=== PATIENT | male | born 1950 | race Caucasian/White ===

== ENCOUNTER → 2017-04-18 | Outpatient (CLI) | payer MEDICARE ==
[~2017-04-18] MED LIST: ASPI325T6 PO; COREG 6.256.25 MG/TA PO; FARXIGA5 PO; FERROUS SU325 MG/TAB PO; GLUCOPHAGE XR500 M1 PO; HCTZ12.5TAB PO; JANUMET; JANUMET 1000 MG1 TAB PO; LEVEMIR SQ; LIPITOR 10MG10 MG PO; LISINOPRIL20 MG PO; NOVOLOG FLEX100 U/ML SQ; PLAVIX 75MG TAB75 MG PO; PRINIVIL20 MG PO; VICTOZA6 MG/ML SQ
== END ==
LOC: COL.RAD 08:09
DX: N18.9 Chronic kidney disease, unspecified (principal)

== ENCOUNTER 2019-02-21 20:34 | Emergency (ER) | payer MEDICARE ==
[~2019-02-21] VITALS: Ht 175.3 cm; Wt 136.4 kg
[2019-02-21 20:42] VITALS: TEMP 97.6
[2019-02-21] MEDS ORDERED: FLOMAX 0.40.4 MG/CAP PO (20:47)
[2019-02-21] MEDS ORDERED: CANA300T PO (20:47)
[2019-02-21 21:55] VITALS: BP 118/97; PULSE 56
== END 2019-02-21 21:58 | disposition home or self-care (01) ==
LOC: COL.ER 20:34
DX: I83.892 Varicose veins of left lower extremity with other complications (principal); S80.812A Abrasion, left lower leg, initial encounter; I12.9 Hypertensive chronic kidney disease with stage 1 through stage 4 chronic kidney disease, or unspecified chronic kidney disease; E11.22 Type 2 diabetes mellitus with diabetic chronic kidney disease; N18.9 Chronic kidney disease, unspecified; E78.5 Hyperlipidemia, unspecified; Z79.82 Long term (current) use of aspirin; Z79.02 Long term (current) use of antithrombotics/antiplatelets; Z86.79 Personal history of other diseases of the circulatory system

== ENCOUNTER 2019-03-24 18:49 | Inpatient (IN) | payer MEDICARE ==
[~2019-03-24] VITALS: Ht 177.8 cm; Wt 133.7 kg
[~2019-03-24 18:49] MED LIST changes: +CANA300T PO; +FLOMAX 0.40.4 MG/CAP PO
[2019-03-24 19:38] LABS: BASO % 0.4 % (0.0-2.0); EOS # 0.2 (0.0-0.7); EOS % 2.7 % (0-4.0); GRAN # 4.1 (1.4-6.5); GRAN % 53.6 % (42.2-75.2); HEMATOCRIT 38.4 % (42.0-52.0); HEMOGLOBIN 12.2 g/dl (13.5-18.0); LYMPH # 2.5 (1.2-3.4); LYMPH % 32.8 % (20.0-51.0); MEAN CELL VOLUME 89 fl (80.0-100.0); MEAN CORPUSCULAR HEMOGLOBIN 28 pg (27.0-31.0); MEAN CORPUSCULAR HGB CONC 32 g/dl (33.0-37.0); MEAN PLATELET VOLUME 9.8 fl (7.4-10.4); MONO # 0.8 (0.1-0.6); MONO % 10.2 % (1.7-9.3); PLATELET COUNT 182 K/mm3 (130-400); REDCELL DISTRIBUTION WIDTH-CV 15.1 % (11.5-14.5)
[2019-03-24 19:40] LABS: INR 1.1 (0.8-3.0); PROTHROMBIN TIME 12.6 SECONDS (9.7-12.8)
[2019-03-24 19:43] LABS: PARTIAL THROMBOPLASTIN TIME 34.1 SECONDS (26.0-37.0)
[2019-03-24 19:55] LABS: ALBUMIN 4.1 gm/dL (3.5-5.0); BILIRUBIN,TOTAL 0.6 mg/dL (0.0-1.0); CALCIUM 9.6 mg/dL (8.4-10.2); CREATININE, serum 1.88 (0.66-1.25); POTASSIUM 4.3 mmol/L (3.4-5.0); TOTAL PROTEIN 7.3 gm/dL (6.4-8.2)
[2019-03-24 20:10] LABS: TROPONIN-I 0.038 ng/mL (0.000-0.035)
[2019-03-24 21:16] VITALS: BP 128/54; PULSE 44; TEMP 98.6
[2019-03-24] MEDS ORDERED: LOVAZA1 GM PO (21:30)
--- NOTE | 2019-03-24 22:00 | NUR ---
Patient arrived to medical floor room 318 at approximately 2100. accompanied. Denies having pain and discomfort. Alert and oriented x 4. Able to make needs known. LS CTA. Respirations even and unlabored. Does state he gets SOB with exertion. Heart rate has been in the 40s since being in the ER. Tele shows sinus bradycardia. Periphearl INT to right hand flushed. Site is without redness, warmth, swelling, and pain. 2+ edema to BLE. Red area to left dominguez. BUE and BLE are strong and equal bilaterally. Pupils are round, and react equally and immediately to light. Voices no needs or concerns at this time. Call light is within reach.
[2019-03-24 23:17] LABS: TROPONIN-I 3 HR POST INITIAL 0.04 ng/mL (0.000-0.034)
[2019-03-24 23:55] VITALS: BP 103/47; PULSE 83; TEMP 98.1
[2019-03-25] VITALS (11 sets, daily range): BP systolic 96–152; BP diastolic 47–61; PULSE 49–105; TEMP 97.5–98.5
--- NOTE | 2019-03-25 04:54 | NUR ---
Patient's HR has been in the 40s during the night, and dropping into the 30s at times. Notified Dr. Trejo, and order received to notify if less than 35. Troponins continue to be elevated, but did not increase. Denies having pain and discomfort. Denies any vision loss and headache. Neuro checks are WNL for patient: pupils round and react equally and immediately to light, strength to BUE and BLE are equal bilatereally, no facial drooping or difficulty swallowing. remains at bedside. Notified patient of pain for carotid ultrasound and MRI of the brain in the morning, and voiced understanding. Voices no other needs or concerns at this time. Resting in bed wtih eyes closed at this time. Call light is within reach.
[2019-03-25 06:54] LABS: HEMATOCRIT 38.6 % (42.0-52.0); HEMOGLOBIN 12.3 g/dl (13.5-18.0); MEAN CELL VOLUME 89 fl (80.0-100.0); MEAN CORPUSCULAR HEMOGLOBIN 28 pg (27.0-31.0); MEAN CORPUSCULAR HGB CONC 32 g/dl (33.0-37.0); MEAN PLATELET VOLUME 10.4 fl (7.4-10.4); PLATELET COUNT 162 K/mm3 (130-400); RED BLOOD COUNT 4.36 M/mm3 (4.20-5.60)
[2019-03-25 07:09] LABS: ALBUMIN 4.1 gm/dL (3.5-5.0); BILIRUBIN,TOTAL 0.8 mg/dL (0.0-1.0); CALCIUM 9.7 mg/dL (8.4-10.2); CREATININE, serum 1.84 (0.66-1.25); POTASSIUM 4.3 mmol/L (3.4-5.0); TOTAL PROTEIN 7.2 gm/dL (6.4-8.2)
[2019-03-25 07:21] LABS: TROPONIN-I 0.042 ng/mL (0.000-0.035)
--- NOTE | 2019-03-25 10:04 | NUR ---
Pt lying in bed alert and oriented x4. Denies any shortness of breath or pain at this time. Breath sounds clear. Completed morning assessment. Bilateral lower extremity has non pitting edema. Denies feeling dizzy, pupils are equal and responsive. Will have MRI at 915. Denies any needs at this time.
--- NOTE | 2019-03-25 11:57 | NUR ---
PT BACK ON FLOOR FROM CONTRACT CONSULTANT. AWAKE AND AOX4. SET UP ON POST OPS.
--- NOTE | 2019-03-25 12:17 | NUR ---
Initial visit; Patient thanked [employer] Reader for looking in on him and offering God's blessings. Patient states he has good family support.
--- NOTE | 2019-03-25 15:21 | NUR ---
SW met with patient and to discuss discharge planning. Patient lives independently at home with his . Patient's PCP is Dr Linda and he obtains prescriptions from [facility]'s pharmacy. Patient uses a CPAP but no other DME is reported and patient does not use any home health services. Patient reports he has a DPOA. SW does not anticipate any discharge needs.
--- NOTE | 2019-03-25 18:11 | NUR ---
Pt lying in bed, denies any pain. No vision disturbances or headache. Food ordered. Denies any needs at this time.
--- NOTE | 2019-03-25 23:36 | NUR ---
Telemetry called stating patient out of afib, now in sinus with LBBB[facility] Noris notifed. No new orders.
[2019-03-26] VITALS (10 sets, daily range): BP systolic 103–135; BP diastolic 49–59; PULSE 51–62; TEMP 98.1–98.6
--- NOTE | 2019-03-26 05:14 | NUR ---
PATIENT UP TO BATHRROM IDEPENDENTLY AT THIS TIME. DENIES COMPLAINTS OF PAIN OR DISCOMFORT. ATTITUDE CALM AND COOPERATIVE. ACKNOWLEDGES BEING NPO FOR POSSIBLE PACEMAKER PLACEMENT. DENIES ANY QUESTIONS OR CONCERNS AT END OF VISIT.
[2019-03-26 06:52] LABS: BASO % 0.3 % (0.0-2.0); EOS # 0.2 (0.0-0.7); EOS % 3.3 % (0-4.0); GRAN # 3.5 (1.4-6.5); GRAN % 56.2 % (42.2-75.2); HEMOGLOBIN 11.7 g/dl (13.5-18.0); LYMPH # 1.9 (1.2-3.4); LYMPH % 30.7 % (20.0-51.0); MEAN CELL VOLUME 90 fl (80.0-100.0); MEAN CORPUSCULAR HEMOGLOBIN 28 pg (27.0-31.0); MEAN CORPUSCULAR HGB CONC 32 g/dl (33.0-37.0); MEAN PLATELET VOLUME 9.6 fl (7.4-10.4); MONO # 0.6 (0.1-0.6); MONO % 9.2 % (1.7-9.3); PLATELET COUNT 168 K/mm3 (130-400); RED BLOOD COUNT 4.12 M/mm3 (4.20-5.60); REDCELL DISTRIBUTION WIDTH-CV 15.2 % (11.5-14.5)
--- NOTE | 2019-03-26 06:59 | NUR ---
Report given to MISTY Owusu
--- NOTE | 2019-03-26 07:00 | NUR ---
Report receive from MISTY Olson. Pt in bed resting, denies needs, wants to keep resting for some time, at bedside, will continue to monitor.
[2019-03-26 07:08] LABS: CALCIUM 9.3 mg/dL (8.4-10.2); CREATININE, serum 1.94 (0.66-1.25); POTASSIUM 4.3 mmol/L (3.4-5.0)
--- NOTE | 2019-03-26 09:00 | NUR ---
Assessment charted. Pt wanted to rest, checked back 3 times and finally agreeable to am meds and assessment. Denies pain. Really wants to leave today. NPO at this time, wants to see chain saw mechanic to determine POC. Disucssed currently in NSR, pt reports no s/sx of changing from afib to sinus rhythm. Denies pain. Denies nausea/vomiting. Neuro checks negative for changes, denies any vision changes. Will continue to monitor.
--- NOTE | 2019-03-26 12:00 | NUR ---
PT left via bed with laborer cook house staff for pacemaker placement. followed down. Will await return.
--- NOTE | 2019-03-26 12:42 | NUR ---
ALL MEDICATIONS GIVEN VORB WITH MD. SEE MERGE FOR ALL MEDICATION ADMIN TIMES. SEE MERGE FOR ALL RASS ASSESSMENTS DURING AND POST PROCEDURE. ANTIBIOTICS STARTED PRIOR TO PROCEDURE, REFER TO MAR.
--- NOTE | 2019-03-26 13:40 | NUR ---
Pt returned to floor at this time from laborer carpentry dock, sleepy but easily arousable. Denies needs, ice water provided, pt wants to rest and then will try eating something.
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
--- NOTE | 2019-03-27 00:22 | NUR ---
Resting in bed with at bedside. Call light in reach.
[2019-03-27 03:30] VITALS: BP 119/57; PULSE 60; TEMP 98
--- NOTE | 2019-03-27 04:53 | NUR ---
PATIENT SLEEPING AT THIS TIME. DRESSING TO PACEMAKER SITE OBSERVED TO BE CDI. PATIENT AWAKENS EASILY. DENIES COMPLAINTS OF PAIN OR DISCOMFORT. PATIENT CONTINUES WITH LEFT ARM IN SLING ORDERED. OTHERWISE UNEVENTFUL NIGHT. FIRTS DOSE OF SOTOLAL ADMINISTERED AT HS ORDERED.
[2019-03-27 06:14] LABS: BASO % 0.2 % (0.0-2.0); EOS # 0.2 (0.0-0.7); EOS % 3.6 % (0-4.0); GRAN # 3.8 (1.4-6.5); GRAN % 59.2 % (42.2-75.2); HEMOGLOBIN 11.5 g/dl (13.5-18.0); LYMPH # 1.7 (1.2-3.4); MEAN CELL VOLUME 89 fl (80.0-100.0); MEAN CORPUSCULAR HEMOGLOBIN 28 pg (27.0-31.0); MEAN CORPUSCULAR HGB CONC 32 g/dl (33.0-37.0); MONO # 0.7 (0.1-0.6); MONO % 10.7 % (1.7-9.3); PLATELET COUNT 161 K/mm3 (130-400); RED BLOOD COUNT 4.08 M/mm3 (4.20-5.60); REDCELL DISTRIBUTION WIDTH-CV 14.8 % (11.5-14.5)
[2019-03-27 06:17] LABS: HEMATOCRIT 36.2 % (42.0-52.0)
[2019-03-27 06:22] LABS: CALCIUM 9.1 mg/dL (8.4-10.2); CREATININE, serum 1.72 (0.66-1.25); MAGNESIUM 2.1 mg/dL (1.6-2.3); POTASSIUM 4.3 mmol/L (3.4-5.0)
--- NOTE | 2019-03-27 06:40 | NUR ---
CALL TO DR. DEL ANGEL NOTIFIED OF EKG QTc of 505. ORDER RECEIVED TO GIVE 0900 DOSE OF SOTOLOL.
--- NOTE | 2019-03-27 06:42 | NUR ---
Report given to MISTY Owusu
--- NOTE | 2019-03-27 07:00 | NUR ---
Report received from MISTY Olson. pT in bed resting, feeling well, per nightshift okay to give am sotalol confirmed with dr. renteria, will provide and continue to monitor.
[2019-03-27 08:04] VITALS: BP 120/48; PULSE 61; TEMP 98.4
--- NOTE | 2019-03-27 08:15 | NUR ---
Assessment charted. Pt feeling well, has no pain at all at pacemaker site, only soreness in arm when moving. Discussed need to get up and ambulate today to prevent atelactasis. Pt agreeable. INT to RW. Sling on L arm. Taking PO well. Will continue to monitor.
--- NOTE | 2019-03-27 10:00 | NUR ---
Pt report recieved from MISTY Owusu. Pt sitting up in bed upon entry, he is A/O x3. His breathing is even and unlabored on RA. Pt has LUE in sling, gauze has been removed from pacemaker site, incision edges well approximated, no drainage present. Pt denies pain at this time. No palpitations or SOB. Call light within reach.
[2019-03-27 11:09] VITALS: BP 135/58; PULSE 59; TEMP 98.2
[2019-03-27 15:43] VITALS: BP 120/55; PULSE 59; TEMP 99
[2019-03-27 19:58] VITALS: BP 122/54; PULSE 59; TEMP 99
--- NOTE | 2019-03-27 23:34 | NUR ---
Patient assessed around 2019. Denies having pain and discomfort. Voiced no needs or concerns. Alert and oriented x 4, and able to make needs known. LS CTA. Respirations even and unlabored. HRR. Steristrips to surgical site on left chest are CDI. Area is without redness, warmth, swelling, pain, and drainage. Sling to left arm. Peripheral INT to right hand flushed. Site is patent, and without redness, warmth, swelling, and pain. Resting in bed with eyes closed at this time. at bedside. Call light is within reach.
[2019-03-27 23:58] VITALS: BP 133/60; PULSE 60; TEMP 98.3
[2019-03-28 03:41] VITALS: BP 125/61; PULSE 60; TEMP 98
--- NOTE | 2019-03-28 05:00 | NUR ---
Patient has denied having pain and discomfort so far this shift. Resting in bed with eyes closed at this time. remains at bedside. Sling continues to left arm. Steristrips to chest are CDI. Call light is within reach.
[2019-03-28 06:02] LABS: BASO % 0.3 % (0.0-2.0); EOS # 0.2 (0.0-0.7); EOS % 3.1 % (0-4.0); GRAN # 3.1 (1.4-6.5); GRAN % 53.1 % (42.2-75.2); HEMOGLOBIN 11.4 g/dl (13.5-18.0); LYMPH # 1.9 (1.2-3.4); LYMPH % 33.3 % (20.0-51.0); MEAN CELL VOLUME 88 fl (80.0-100.0); MEAN CORPUSCULAR HEMOGLOBIN 28 pg (27.0-31.0); MEAN CORPUSCULAR HGB CONC 32 g/dl (33.0-37.0); MEAN PLATELET VOLUME 9.8 fl (7.4-10.4); MONO # 0.6 (0.1-0.6); PLATELET COUNT 163 K/mm3 (130-400); RED BLOOD COUNT 4.05 M/mm3 (4.20-5.60); REDCELL DISTRIBUTION WIDTH-CV 14.7 % (11.5-14.5)
[2019-03-28 06:05] LABS: HEMATOCRIT 35.8 % (42.0-52.0)
[2019-03-28 06:15] LABS: CREATININE, serum 1.69 (0.66-1.25); MAGNESIUM 2.3 mg/dL (1.6-2.3); POTASSIUM 4.2 mmol/L (3.4-5.0)
--- NOTE | 2019-03-28 07:14 | NUR ---
Report given to MISTY Curiel.
--- NOTE | 2019-03-28 08:03 | NUR ---
Pt resting and awake, no C/O pain, shift assessments complete, left Pt call light in reach, bed in lowest position.
[2019-03-28 09:07] VITALS: BP 106/53; PULSE 60; TEMP 98
[2019-03-28 11:27] VITALS: BP 120/56; PULSE 65; TEMP 98.4
[2019-03-28] MEDS ORDERED: CLEOCIN HCL300 MG PO (11:47)
[2019-03-28] MEDS ORDERED: BETAPACE 80MG80 MG PO (11:48)
[2019-03-28] MEDS ORDERED: ASPIRIN 81M81 MG/TA2 PO (11:48)
[2019-03-28] MEDS ORDERED: PRINIVIL20 MG PO (11:51)
[2019-03-28] MEDS ORDERED: ELIQUIS 5MG PO (11:53)
--- NOTE | 2019-03-28 13:16 | NUR ---
SW informed that patient will discharge home today (03/28). SW presenting IM to patient. He signed and did not want a copy.
--- NOTE | 2019-03-28 17:11 | NUR ---
Pt discharge complete, INT discontinued, Pt escorted to curbside.
== END 2019-03-28 15:30 | disposition home or self-care (01) | DRG 41 ==
LOC: COL.ER 18:49 → MEDICAL 20:19
PROVIDERS: Emergency Medicine; Nurse Practitioner Family; ADMIT Internal Medicine
PROC: 5A2204Z Restoration of Cardiac Rhythm, Single (ICD-10-PCS; 2019-03-25)
PROC: 02H63JZ Insertion of Pacemaker Lead into Right Atrium, Percutaneous Approach (ICD-10-PCS; principal; 2019-03-26)
PROC: 0JH606Z Insertion of Pacemaker, Dual Chamber into Chest Subcutaneous Tissue and Fascia, Open Approach (ICD-10-PCS; 2019-03-26)
PROC: 02HK3JZ Insertion of Pacemaker Lead into Right Ventricle, Percutaneous Approach (ICD-10-PCS; 2019-03-26)
DX: G45.9 Transient cerebral ischemic attack, unspecified (principal); N17.9 Acute kidney failure, unspecified; I48.92 Unspecified atrial flutter; Z68.41 Body mass index [BMI] 40.0-44.9, adult; N18.4 Chronic kidney disease, stage 4 (severe); E78.5 Hyperlipidemia, unspecified; I48.91 Unspecified atrial fibrillation; I44.0 Atrioventricular block, first degree; I08.3 Combined rheumatic disorders of mitral, aortic and tricuspid valves; I12.9 Hypertensive chronic kidney disease with stage 1 through stage 4 chronic kidney disease, or unspecified chronic kidney disease; E11.42 Type 2 diabetes mellitus with diabetic polyneuropathy; E11.22 Type 2 diabetes mellitus with diabetic chronic kidney disease; I25.10 Atherosclerotic heart disease of native coronary artery without angina pectoris; G47.33 Obstructive sleep apnea (adult) (pediatric); I49.5 Sick sinus syndrome; E66.01 Morbid (severe) obesity due to excess calories; J44.9 Chronic obstructive pulmonary disease, unspecified; R51 Headache; Z79.4 Long term (current) use of insulin; Z79.82 Long term (current) use of aspirin; Z79.02 Long term (current) use of antithrombotics/antiplatelets; Z79.84 Long term (current) use of oral hypoglycemic drugs; Z99.81 Dependence on supplemental oxygen; Z88.9 Allergy status to unspecified drugs, medicaments and biological substances; Z95.1 Presence of aortocoronary bypass graft; Z96.652 Presence of left artificial knee joint; Z86.73 Personal history of transient ischemic attack (TIA), and cerebral infarction without residual deficits
CPT/HCPCS: 99231-AI; 99232-AI; 99239; C1785; C1894; C1898; J1644; J1650; J1815; J1940; J2250; J2704; J3010; J3370; J7030; J7050

== ENCOUNTER 2019-09-08 16:34 | Emergency (ER) | payer MEDICARE ==
[~2019-09-08] VITALS: Ht 177.8 cm; Wt 134.1 kg
[~2019-09-08 16:34] MED LIST changes: +ASPIRIN 81M81 MG/TA2 PO; +BETAPACE 80MG80 MG PO; +CLEOCIN HCL300 MG PO; +ELIQUIS 5MG PO; +LOVAZA1 GM PO
[2019-09-08 16:38] VITALS: TEMP 96
[2019-09-08] MEDS ORDERED: FLEXERIL5 MG PO (16:53)
[2019-09-08] MEDS ORDERED: VICODIN ES 7.5 PO (16:53)
[2019-09-08] MEDS ORDERED: PREDNISONE20 MG PO (18:30)
[2019-09-08] MEDS ORDERED: VALIUM 5MG T5 MG/TAB PO (18:30)
[2019-09-08 18:42] VITALS: BP 118/70; PULSE 71
== END 2019-09-08 18:43 | disposition home or self-care (01) ==
LOC: COL.ER 16:34
DX: M54.41 Lumbago with sciatica, right side (principal); E11.9 Type 2 diabetes mellitus without complications; I25.10 Atherosclerotic heart disease of native coronary artery without angina pectoris; I10 Essential (primary) hypertension; Z95.1 Presence of aortocoronary bypass graft; Z98.890 Other specified postprocedural states; Z79.82 Long term (current) use of aspirin; Z79.4 Long term (current) use of insulin
CPT/HCPCS: J2270; J3360; J7512

== ENCOUNTER 2019-10-29 11:24 | Inpatient (IN) | payer MEDICARE ==
[~2019-10-29] VITALS: Ht 177.8 cm; Wt 125.2 kg
[~2019-10-29 11:24] MED LIST changes: +FLEXERIL5 MG PO; +PREDNISONE20 MG PO; +VALIUM 5MG T5 MG/TAB PO; +VICODIN ES 7.5 PO
[2019-11-04] VITALS (10 sets, daily range): BP systolic 102–166; BP diastolic 65–84; PULSE 59–66; TEMP 97.2–98.4
[2019-11-04] MEDS ORDERED: NEURONTIN100 MG/CAP PO (04:55)
[2019-11-04] MEDS ORDERED: CEFTIN500 MG PO (06:04)
--- NOTE | 2019-11-04 11:38 | NUR ---
PT TO ROOM 329 PER BED WITH FREDRICK JAY PACU @ 1015. PT IS A/O X3, LUNGS CTA, BOWEL SOUNDS PRESENT. AQUACEL TO RIGHT KNEE CDI TEDS AND SCDS PLACED BILATERALLY. PEDAL PULSES PALPABLE. IV TO PUMP PER ORDERS.
--- NOTE | 2019-11-04 15:22 | NUR ---
PT RESTING IN BED DRESSING CDI.
--- NOTE | 2019-11-04 18:57 | NUR ---
PATIENT TO MARGOT JAY. BEDSIDE REPORT GIVEN.
--- NOTE | 2019-11-04 20:00 | NUR ---
Patient in bed, awake. States pain in right knee 02/13. Declines scheduled tylenol. States he can wait for prn medication to be due. Also states that he doesn't think getting up tonight would be a good idea. Educated him on the importance of ambulating early after surgery. Patient agreeable to ambulating after pain medication is given. KEN dietz/SCD's noted on BLE. Ice pack to right knee. Aquacell on right knee CDI. Denies further needs at this time. Will continue to monitor.
[2019-11-05 01:00] VITALS: BP 124/62; PULSE 60; TEMP 97.9
--- NOTE | 2019-11-05 03:24 | NUR ---
Patient in bed, awake. States pain 6/10 in right knee. Prn pain medication given per request. 95% on room air, oxygen kept off. Patient ambulated with SUPERVISOR MALT HOUSE last night, tolerated fairly well with pain premedication. Denies further needs at this time. Will continue to monitor.
[2019-11-05 03:30] VITALS: BP 125/58; PULSE 64; TEMP 97.7
[2019-11-05 07:52] LABS: HEMOGLOBIN 11.2 g/dl (13.5-18.0)
[2019-11-05 07:58] LABS: HEMATOCRIT 35.8 % (42.0-52.0)
[2019-11-05 08:11] VITALS: BP 149/69; PULSE 59; TEMP 97.7
--- NOTE | 2019-11-05 08:30 | NUR ---
Medicated with [place] for c/o right knee pain. Ice pack to knee. Aquacell dressing CDI.
[2019-11-05] MEDS ORDERED: NORCO 325 MG-7.1 TAB PO (08:56)
[2019-11-05] MEDS ORDERED: ROXICODONE 55 MG/TAB PO (08:56)
[2019-11-05 11:26] VITALS: BP 127/64; PULSE 60; TEMP 97.3
--- NOTE | 2019-11-05 13:00 | NUR ---
Ambulated in [place] with physical therapy. Pain improved with prn meds.
--- NOTE | 2019-11-05 14:05 | NUR ---
Household Personal Assistant met with the patient to discuss discharge planning. Patient lives in [place] with his Crystal (ph#[phone]). Patient sees Dr. Linda at [facility] and obtains medications from [facility] with no difficulties. Patient has a walker and CPAP at home. Patient plans to use [facility] for outpatient PT upon discharge. Patient does not have Advance Directives. Patient plans to return home upon discharge.
[2019-11-05 15:44] VITALS: BP 151/57; PULSE 61; TEMP 98
--- NOTE | 2019-11-05 18:30 | NUR ---
Pain managed with alternating Roxicodone and [place]. Ice pack to right knee.
--- NOTE | 2019-11-05 21:00 | NUR ---
Pt. sitting up in bed at this time with at bedside. Pt. is A&OX3, assessment complet. INT to rt. hand patent. Aquacell dressing to rt. knee CDI. Pt. reports pain at a 5 on pain scale, will give meds per orders. Pt. ambulated to the bathroom and back. Pt. denies further needs, call light within reach.
[2019-11-06 08:04] VITALS: BP 115/61; PULSE 61; TEMP 98.2
[2019-11-06 11:35] VITALS: BP 122/71; PULSE 60; TEMP 98.1
[2019-11-06 15:52] VITALS: BP 128/63; PULSE 68; TEMP 98.3
--- NOTE | 2019-11-06 17:30 | NUR ---
Drowsy. Activity encouraged. Worked with physical therapy in AM. Ambulated length of hallway with staff in PM. Required less pain medication today for knee pain. Marlene dressing CDI. Ice pack to knee.
--- NOTE | 2019-11-06 20:00 | NUR ---
Pt. sitting up in bed watching TV. Pt. is A&OX3, assessment complete. INT to rt. hand patent. Pt. would like pain meds with evening meds, Will give per orders. Dressing to rt. knee, CDI. Pt. denies further needs, call light within reach.
[2019-11-06 23:25] VITALS: BP 134/54; PULSE 63; TEMP 99.1
[2019-11-07 05:14] VITALS: BP 139/63; PULSE 62; TEMP 98.4
--- NOTE | 2019-11-07 07:15 | NUR ---
Report from Nicholas JAY.
[2019-11-07 07:51] VITALS: BP 148/59; PULSE 60; TEMP 97.8
[2019-11-07 11:23] VITALS: BP 140/70; PULSE 63; TEMP 97.8
--- NOTE | 2019-11-07 12:54 | NUR ---
DISCHARGE INSTRUCTIONS PROVIDED TO PT AND SPOUSE. TAKEN TO POV BY WHEEL CHAIR WITH STAFF.
== END 2019-11-07 12:55 | disposition home or self-care (01) | DRG 470 ==
LOC: JCC 11-04 05:31
PROVIDERS: ADMIT Orthopaedic Surgery
PROC: 0LN Tendons, Release (ICD-10-PCS; 2019-11-04)
PROC: 0SRC0J9 Replacement of Right Knee Joint with Synthetic Substitute, Cemented, Open Approach (ICD-10-PCS; principal; 2019-11-04 07:30)
DX: M17.11 Unilateral primary osteoarthritis, right knee (principal); E11.65 Type 2 diabetes mellitus with hyperglycemia; E11.40 Type 2 diabetes mellitus with diabetic neuropathy, unspecified; E66.9 Obesity, unspecified; I25.10 Atherosclerotic heart disease of native coronary artery without angina pectoris; K59.00 Constipation, unspecified; E78.5 Hyperlipidemia, unspecified; Z79.4 Long term (current) use of insulin; Z79.01 Long term (current) use of anticoagulants; Z79.82 Long term (current) use of aspirin; Z88.1 Allergy status to other antibiotic agents
CPT/HCPCS: 99223; 99231-AI; A4314; A9284; C1776; J0690; J1815; J2250; J2704; J3010; J3370; J7030; J7120

== ENCOUNTER 2020-09-09 08:14 | Day surgery (SDC) | payer MEDICARE ==
[2020-09-09] VITALS (18 sets, daily range): BP systolic 104–157; BP diastolic 63–84; PULSE 56–60; TEMP 98
[~2020-09-09] VITALS: Ht 177.8 cm; Wt 132.2 kg
[~2020-09-09 08:14] MED LIST changes: +CEFTIN500 MG PO; +NEURONTIN100 MG/CAP PO; +NORCO 325 MG-7.1 TAB PO; +ROXICODONE 55 MG/TAB PO
[2020-09-09 09:40] LABS: HEMATOCRIT 40.3 % (42.0-52.0); HEMOGLOBIN 13.3 g/dl (13.5-18.0); MEAN CELL VOLUME 88 fl (80.0-100.0); MEAN CORPUSCULAR HEMOGLOBIN 29 pg (27.0-31.0); MEAN CORPUSCULAR HGB CONC 33 g/dl (33.0-37.0); PLATELET COUNT 182 K/mm3 (130-400); RED BLOOD COUNT 4.59 M/mm3 (4.20-5.60); REDCELL DISTRIBUTION WIDTH-CV 14.6 % (11.5-14.5)
[2020-09-09 09:45] LABS: INR 1.1 (0.8-3.0); PROTHROMBIN TIME 11.9 SECONDS (9.7-12.8)
[2020-09-09] MEDS ORDERED: BETAPACE 80MG80 MG PO (09:48)
[2020-09-09] MEDS ORDERED: ELIQUIS 5MG PO (09:48)
[2020-09-09] MEDS ORDERED: GLUCOPHAGE500 MG/TAB PO (09:49)
[2020-09-09] MEDS ORDERED: LOVAZA1 GM PO (09:50)
[2020-09-09 09:53] LABS: CALCIUM 9.4 mg/dL (8.4-10.2); CREATININE, serum 1.64 (0.66-1.25); POTASSIUM 4.3 mmol/L (3.4-5.0)
[2020-09-09] MEDS ORDERED: CANA300T PO (09:55)
--- NOTE | 2020-09-09 10:05 | NUR ---
Pt to procedure,report to Kishore Gardiner.
[2020-09-09] MEDS ORDERED: ASPIRIN 81M81 MG/TA2 PO (10:09)
[2020-09-09] MEDS ORDERED: ZESTRIL 20MG TA20 MG PO (10:10)
--- NOTE | 2020-09-09 11:45 | NUR ---
Back from labor relations director by bed. Drowsy but oriented. Right groin site CD&I and soft to palation. VSS. Spouse beside
[2020-09-09] MEDS ORDERED: IMDUR 30MG30 MG/TAB PO (14:31)
--- NOTE | 2020-09-09 17:37 | NUR ---
Discharge instructions given to pt and his .Pt verbalizes understanding.
--- NOTE | 2020-09-09 17:37 | NUR ---
Report to Kishore Coleman.
--- NOTE | 2020-09-09 18:30 | NUR ---
INT discontinued intact. Ambulated to bathroom with steady gait. Right Groin site soft to paplation and CD&I dressing noted.
--- NOTE | 2020-09-09 18:57 | NUR ---
Transferred to private car by josé miguel
== END 2020-09-09 18:57 | disposition home or self-care (01) ==
LOC: COL.CAR 08:14
PROVIDERS: Internal Medicine Cardiovascular Disease
DX: T82.858A Stenosis of other vascular prosthetic devices, implants and grafts, initial encounter (principal); I49.5 Sick sinus syndrome; I13.0 Hypertensive heart and chronic kidney disease with heart failure and stage 1 through stage 4 chronic kidney disease, or unspecified chronic kidney disease; I50.20 Unspecified systolic (congestive) heart failure; N18.9 Chronic kidney disease, unspecified; E11.22 Type 2 diabetes mellitus with diabetic chronic kidney disease; I25.10 Atherosclerotic heart disease of native coronary artery without angina pectoris; Z20.828 Contact with and (suspected) exposure to other viral communicable diseases; I48.91 Unspecified atrial fibrillation; K21.9 Gastro-esophageal reflux disease without esophagitis; I27.20 Pulmonary hypertension, unspecified; E78.5 Hyperlipidemia, unspecified; G47.33 Obstructive sleep apnea (adult) (pediatric); I08.3 Combined rheumatic disorders of mitral, aortic and tricuspid valves; Z86.73 Personal history of transient ischemic attack (TIA), and cerebral infarction without residual deficits; Z95.1 Presence of aortocoronary bypass graft; Z88.1 Allergy status to other antibiotic agents; Z79.82 Long term (current) use of aspirin; Z79.01 Long term (current) use of anticoagulants; Z79.4 Long term (current) use of insulin; Z79.899 Other long term (current) drug therapy
CPT/HCPCS: J1644; J1940; J2250; J3010; Q9967

== ENCOUNTER 2021-03-01 15:36 | Inpatient (IN) | payer MEDICARE ==
[~2021-03-01] VITALS: Ht 177.8 cm; Wt 129.9 kg
[~2021-03-01 15:36] MED LIST changes: +GLUCOPHAGE500 MG/TAB PO; +IMDUR 30MG30 MG/TAB PO; -LIPITOR 10MG10 MG PO; +LIPITOR20 MG PO; +ZESTRIL 20MG TA20 MG PO
[2021-03-01 17:36] VITALS: BP 128/54; PULSE 60; TEMP 99.4
[2021-03-01] MEDS ORDERED: FARXIGA10 PO (17:40)
[2021-03-01 18:30] LABS: BASO % 0.3 % (0.0-2.0); EOS # 0.1 (0.0-0.7); EOS % 0.9 % (0-4.0); GRAN # 4.9 (1.4-6.5); GRAN % 69.3 % (42.2-75.2); HEMATOCRIT 33.8 % (42.0-52.0); HEMOGLOBIN 10.8 g/dl (13.5-18.0); LYMPH % 14.7 % (20.0-51.0); MEAN CELL VOLUME 89 fl (80.0-100.0); MEAN CORPUSCULAR HEMOGLOBIN 28 pg (27.0-31.0); MEAN CORPUSCULAR HGB CONC 32 g/dl (33.0-37.0); MONO % 14.4 % (1.7-9.3); PLATELET COUNT 286 K/mm3 (130-400); RED BLOOD COUNT 3.82 M/mm3 (4.20-5.60); REDCELL DISTRIBUTION WIDTH-CV 15.1 % (11.5-14.5)
[2021-03-01 18:32] LABS: INR 2.1 (0.8-3.0); PROTHROMBIN TIME 23.5 SECONDS (9.7-12.8)
[2021-03-01 18:58] LABS: ALBUMIN 3.9 gm/dL (3.5-5.0); BILIRUBIN,TOTAL 0.9 mg/dL (0.0-1.0); CREATININE, serum 1.41 (0.66-1.25); POTASSIUM 4.8 mmol/L (3.4-5.0); TOTAL PROTEIN 7.7 gm/dL (6.4-8.2)
[2021-03-01 19:01] LABS: SYNOVIAL FL. MONONUCLEAR 3.6 % (0-75); SYNOVIAL FLUID COLOR BROWN; SYNOVIAL FLUID RBC 9000 /mm3 (0-0); SYNOVIAL FLUID WBC 71979 /mm3 (200-600)
[2021-03-01 19:02] LABS: SYNOVIAL FLUID APPEARANCE TURBID
[2021-03-01 19:28] LABS: C-REACTIVE PROTEIN 17.6 mg/dL (0.0-0.9)
--- NOTE | 2021-03-01 20:12 | NUR ---
Patient admitted to room 327. all admission paperwork completed. Labs, ekg, chest xray completed. Hospitalist rounded. Iv antibioitcs started. Patient very nervous about needles. He is resting in bed eating dinner. REport to night nurse
[2021-03-01 20:30] VITALS: BP 107/41; PULSE 59; TEMP 99.4
--- NOTE | 2021-03-01 21:30 | NUR ---
PATIENT IS CALM IN THE ROOM.ASSESSMENT DONE.REPORTS PAIN AT 8.MEDICATION GIVEN PER MAR.NO OTHER NEEDS AT THIS TIME.
[2021-03-02] VITALS (10 sets, daily range): BP systolic 102–153; BP diastolic 41–75; PULSE 58–88; TEMP 97.5–99.1
--- NOTE | 2021-03-02 06:08 | NUR ---
PATIENT SLEPT WELL.DENIES PAIN.ON NPO STATUS.NO OTHER NEEDS AT THIS TIME.
[2021-03-02 07:15] LABS: BASO % 0.2 % (0.0-2.0); EOS # 0.1 (0.0-0.7); EOS % 2.3 % (0-4.0); GRAN # 4.1 (1.4-6.5); GRAN % 73.2 % (42.2-75.2); HEMOGLOBIN 10.4 g/dl (13.5-18.0); LYMPH # 0.7 (1.2-3.4); LYMPH % 11.6 % (20.0-51.0); MEAN CELL VOLUME 91 fl (80.0-100.0); MEAN CORPUSCULAR HEMOGLOBIN 29 pg (27.0-31.0); MEAN CORPUSCULAR HGB CONC 32 g/dl (33.0-37.0); MEAN PLATELET VOLUME 9.7 fl (7.4-10.4); MONO # 0.7 (0.1-0.6); MONO % 12.3 % (1.7-9.3); PLATELET COUNT 257 K/mm3 (130-400); REDCELL DISTRIBUTION WIDTH-CV 15.2 % (11.5-14.5)
[2021-03-02 07:28] LABS: CALCIUM 8.9 mg/dL (8.4-10.2); CREATININE, serum 1.32 (0.66-1.25); POTASSIUM 4.5 mmol/L (3.4-5.0)
--- NOTE | 2021-03-02 07:30 | NUR ---
PATIENT REFUSING AM LABS BECAUSE "HE DOESN'T LIKE GETTING POKED". NURSING EDUCATED PATIENT ABOUT THE IMPORTANCE OF LABS DURING HOSPITALIZATION, RELATED TO HIS INFECTION, AND POSSIBLE SURGERY. PATIENT DID AGREE AFTER MUCH EDUCATION.
[2021-03-02 07:32] LABS: HEMATOCRIT 32.8 % (42.0-52.0)
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
--- NOTE | 2021-03-02 09:35 | NUR ---
PATIENT KEEPS SAYING "THE MORPHIN ISN'T WORKING". NURSING ASKED PATIENT IS HE HURTING, PATIENT SEEMED CONFUSED BY THIS QUESTION AND THE STATED "WELL, I WILL BE HURTING WHEN SHE PUTS THAT PICC LINE IN". PATIENT REQUESTING MORE PAIN MEDS. PATIENT IS SCARED OF NEEDLES AND IS VERY ANXIOUS ABOUT PICC LINE PLACEMENT. PATIENT WANTING TO "BE ASLEEP" FOR THE PICC LINE PROCEDURE. [facility] NURSE EXPLAINED SHE WILL NUMB HIS ARM WITH LIDO. PATIENT STATED "THATS NOT ENOUGH". GAVE PRN ATIVAN BEFORE PROCEDURE. [facility] OBTAINED CONSENT EARLIER THIS AM.
--- NOTE | 2021-03-02 11:00 | NUR ---
THERE WERE DIFFICULTIES PLACING PICC LINE IT THREADED UP, TIP DOWN. HOSPITALIST NOTIFIED. AIVS RECOMMENDED FLUIDS AT TKO AND REPEAT AM CXR. SEE AIVS & HOSPITALIST NOTES.
--- NOTE | 2021-03-02 11:15 | NUR ---
HAVE NOT SEEN ORTHO YET TODAY. LEFT MESSAGE FOR . PATIENT REPORTS TAKING ELIQUIS YESTERDAY. WAITING TO HEAR BACK
--- NOTE | 2021-03-02 11:40 | NUR ---
NOTED HYPOGLYCEMIA. BS WAS 53, CHECK WAS 65. PATIENT DROWSY BUT OTHERWISE ASPYMPTOMATIC. PATIENT IS ORIENTED, NOT SWEATY, AND RESTING COMFORTABLY. CALLED HOSPITALIST, SEE ORDERS. GAVE 12.5G OF DEXTROSE. IV FLUIDS INFUSING AT 60CC\HR INTO RIGHT UPPER ARM PICC PER ORDERS. HOSPTIALIST TO COME SEE PATIENT.
--- NOTE | 2021-03-02 11:43 | NUR ---
Tree Shear Operator met with the patient to complete intake. The patient lives in [place] with his , Crystal. The patient has a cane and walker if needed and uses a CPAP. The patient receives CPAP supplies from [employer]. The patient is independent with ADLs. The patient's PCP is Dr. Linda and patient receives medications from [facility] with no difficulties. The patient does not have advanced directives but was interested in DPOA-HC form. Form provided. The plan is for the patient to return home at discharge. The patient may be needing IV antibiotics after discharge. SW discussed the options and choice between home with home health or [facility]. The patient's nurse was present during this intake and states the PICC care nurseMariposa would rather have the patient get the IV antibiotics at [facility]. The patient states he would have transportation if this is what is chosen post discharge. PT/OT to be ordered. *Discharge disposition at this time* Home with possible IV antibiotics. The patient has not chosen if he will visit the [facility] for antibiotics or Home with Home Health.
--- NOTE | 2021-03-02 11:55 | NUR ---
PAGED ANESTHESIA PER ORTHO REQUEST TO CONFIRM RIGHT PICC PLACEMENT IS ADEQUATE FOR SURGERY TODAY. ANESTHESIA AGREES WITH AIVS. WILL PROCEED WITH SURGERY LATER TODAY.
--- NOTE | 2021-03-02 12:15 | NUR ---
BS RECHECK, AFTER DEXTROSE, IS 101. PATIENT RESTING WITHOUT ANY NEEDS.
--- NOTE | 2021-03-02 12:50 | NUR ---
First visit from the atv mechanic. No needs right now.
--- NOTE | 2021-03-02 13:57 | NUR ---
PATIENT GOING DOWN TO OR VIA BED. CONSENT ON CHART.
--- NOTE | 2021-03-02 17:45 | NUR ---
PATIENT IS BACK IN ROOM POST OP AND IS VERY DROWSY. NOTED LOWER B/P IN THE 90'S AND LOW 100'S SYSTOLIC. ALL OTHER VSS. PATIENT SLEEPING. RIGHT KNEE DRESSING IS CD&I WITH ACEWRAP AND TECHNOL BRACE INPLACE. TEDS TO LLE. SCD'S TO BLE. POSITIVE PEDAL PULSES TO BLE. HEAD TO TOE ASSESSMENT WNL. NOW AT BEDSIDE. NO OTHER NEEDS AT THIS TIME. CALL LIGHT IN REACH.
[2021-03-03 00:06] VITALS: BP 112/48; PULSE 60; TEMP 97.2
--- NOTE | 2021-03-03 00:52 | NUR ---
ASSESSMENT COMPLETE. PT C/O 06/15 PAIN. OXY X 2 TAB GIVEN ALONG W PM MEDS. POST OP VITALS STABLE. RT UPPER ARM PICC FLUSHED GOOD BLOOD RETURN. BS 154 INR. SET UP ON EDGE OF BED TO DANGLE. URINAL USED. NEEDS MET.
[2021-03-03 04:53] VITALS: BP 124/49; PULSE 59; TEMP 97.7
--- NOTE | 2021-03-03 05:58 | NUR ---
RESTED THROUGH THE NIGHT WITHOUT INCIDENT.
[2021-03-03 07:17] VITALS: BP 130/54; PULSE 62; TEMP 97.5
[2021-03-03 07:20] LABS: GRAN # 5.1 (1.4-6.5); GRAN % 87.5 % (42.2-75.2); LYMPH # 0.4 (1.2-3.4); LYMPH % 7.2 % (20.0-51.0); MEAN CELL VOLUME 89 fl (80.0-100.0); MEAN CORPUSCULAR HGB CONC 32 g/dl (33.0-37.0); MEAN PLATELET VOLUME 10.3 fl (7.4-10.4); MONO # 0.3 (0.1-0.6); PLATELET COUNT 253 K/mm3 (130-400); RED BLOOD COUNT 3.44 M/mm3 (4.20-5.60); REDCELL DISTRIBUTION WIDTH-CV 14.6 % (11.5-14.5)
[2021-03-03 07:27] LABS: HEMATOCRIT 30.7 % (42.0-52.0); HEMOGLOBIN 9.7 g/dl (13.5-18.0); MEAN CORPUSCULAR HEMOGLOBIN 28 pg (27.0-31.0)
[2021-03-03 07:30] LABS: CALCIUM 8.4 mg/dL (8.4-10.2); CREATININE, serum 1.15 (0.66-1.25); POTASSIUM 4.9 mmol/L (3.4-5.0)
--- NOTE | 2021-03-03 11:00 | NUR ---
Reviewed this am chest x ray. catheter located in patient's right internal jugular vein. I discussed case with Dr. Gastelum. Patient has an extremed anxiety with needles. Dr. Gastelum requested to visit with Abdifatah in clinical laboratory technologist and if there is an available time on Monday to perform central line placement. Primary care nurse informed.
[2021-03-03 11:53] VITALS: BP 117/60; PULSE 60; TEMP 97.3
--- NOTE | 2021-03-03 13:20 | NUR ---
Explained tip location to patient. The plan is make catheter tip location as a midline. Sterile dressing change done with insertion site cleansed with chloraprep x 1, catheter pulled back to 30 cm marking on catheter, skin prep, stat lock, chlorhexidine impregnated disk applied, and tegaderm applied. Catheter tip location is considered a midline placement. triston wrap applied to protect catheter. no signs or symptoms of IV complications noted. await quality assurance qa lab technician time for central line placement. Then once plan is in place we will contact Dr. Emanuel.
--- NOTE | 2021-03-03 15:38 | NUR ---
Left a voice mail for Dr. Emanuel in regard to this am chest x ray. Catheter pulled back to a midline placement. It probably won't last for [address] IV antibiotics[address] Gastelum might be able to place a central line in roofing laborer on Monday. Awaiting return phone call from roofing laborer.
[2021-03-03 16:00] VITALS: BP 100/45; PULSE 60; TEMP 97.4
--- NOTE | 2021-03-03 16:27 | NUR ---
Patient resting in bed at this time. Patient is alert and oriented, answers questions appropriately. Dressing to R knee is CDI. Patient given PRN pain medications per patient request. Denies further needs at this time, call light within reach.
[2021-03-03 20:43] VITALS: BP 119/59; PULSE 62; TEMP 98
--- NOTE | 2021-03-03 20:45 | NUR ---
Pt. sitting up in bed. Pt. is A&OX3, assessment complete. PICC to rt. upper arm patenet. Dressing to rt. knee CDI. Pt. reports pain at a 2 on pain scale. Pt. denies further needs.
[2021-03-04 00:18] VITALS: BP 86/49; PULSE 60; TEMP 97.4
[2021-03-04 03:26] VITALS: BP 106/55; PULSE 62; TEMP 97.6
[2021-03-04 06:41] LABS: BASO % 0.2 % (0.0-2.0); EOS # 0.1 (0.0-0.7); EOS % 1.4 % (0-4.0); GRAN # 4.3 (1.4-6.5); GRAN % 73.2 % (42.2-75.2); LYMPH # 0.9 (1.2-3.4); LYMPH % 15.2 % (20.0-51.0); MEAN CELL VOLUME 89 fl (80.0-100.0); MEAN CORPUSCULAR HGB CONC 31 g/dl (33.0-37.0); MEAN PLATELET VOLUME 10.1 fl (7.4-10.4); MONO # 0.6 (0.1-0.6); MONO % 9.8 % (1.7-9.3); PLATELET COUNT 252 K/mm3 (130-400); RED BLOOD COUNT 3.15 M/mm3 (4.20-5.60); REDCELL DISTRIBUTION WIDTH-CV 14.7 % (11.5-14.5)
[2021-03-04 06:48] LABS: HEMOGLOBIN 8.7 g/dl (13.5-18.0); MEAN CORPUSCULAR HEMOGLOBIN 28 pg (27.0-31.0)
--- NOTE | 2021-03-04 06:50 | NUR ---
Lying in bed with eyes open. Alert and oriented x4. Minimal pain at this time but would like pain medication to prepare working with PT. Chet dressing to right knee CDI, immobilizer in place. CMS intact to right leg. Patient denies additional needs or concerns at this time.
[2021-03-04 07:09] LABS: CALCIUM 8.1 mg/dL (8.4-10.2); CREATININE, serum 1.15 (0.66-1.25); POTASSIUM 4.6 mmol/L (3.4-5.0)
[2021-03-04 07:12] VITALS: BP 111/59; PULSE 60; TEMP 97.6
--- NOTE | 2021-03-04 07:46 | NUR ---
Vancomycin Follow-up Pharmacy Note Current regimen: Vancomycin 1 gm IV q12h Vancomycin trough: 7.98 Adjustments: Will increase Vancomycin to 1.5 gm IV q12h. Pharmacy will continue to monitor and check a Vancomycin trough on 03/06/21.
--- NOTE | 2021-03-04 11:00 | NUR ---
Patient lying in bed watching TV. [place] therapy went good this morning. Denies pain at this time. Will order lunch in a little bit. Denies further needs at this time.
--- NOTE | 2021-03-04 11:06 | NUR ---
Senior Payroll Manager attended clinical rounds with the team. The patient now has a PICC line. The patient is to have surgery on Monday, 03/08. The patient is currently on IV antibiotics. PT/OT is ordered.
[2021-03-04 11:18] VITALS: BP 102/63; PULSE 60; TEMP 97.4
--- NOTE | 2021-03-04 11:55 | NUR ---
Patient blood sugar 154. Patient should get 4 units from sliding scale and 4 units scheduled. Patient says that he does not want to order food and does not want to eat a snack. Explain that if we give him insulin and he does not eat it may cause his blood sugars to get too low. Patient continues to say that he does not want to eat. Contacted Dr. Mcarthur and he says that if the patient is not going to eat to only give the sliding scale insulin, do not give the scheduled insulin. Will administer Novolog 4 units per sliding scale. Patient updated.
[2021-03-04 15:57] VITALS: BP 109/65; PULSE 54; TEMP 97.6
--- NOTE | 2021-03-04 16:14 | NUR ---
Blood sugar 131. Patient sitting up in bed eating strawberries and granola bar that visitor brought in for him. Patient says that he is not going to order from the kitchen for dinner that he is only going to eat the strawberries and granola bar. Patient does not require insulin from sliding scale. Will administer the scheduled dose of insulin.
[2021-03-04 19:21] VITALS: BP 116/62; PULSE 60; TEMP 97.8
--- NOTE | 2021-03-04 20:30 | NUR ---
PT IN BED. IS ALERT AND ORIENTED X4. HAS MIDLINE TO RIGHT ARM, FLUSHES WELL. HAS RT KNEE IMMOBILIZER ON, DRSG D/I. TAKES HS MEDS WITHOUT PROBLEM, DENIES NEED FOR PAIN MEDS AT THIS TIME.
[2021-03-05 00:04] VITALS: BP 135/60; PULSE 63; TEMP 97.6
[2021-03-05 03:50] VITALS: BP 131/64; PULSE 57; TEMP 98.5
--- NOTE | 2021-03-05 04:20 | NUR ---
PT ARRIVES VIA W/C FROM ED TO ROOM 348.
--- NOTE | 2021-03-05 05:00 | NUR ---
ABLE TO DRAW LAB FROM MIDLINE. IV ANTIBIOTIC INFUSING WITHOUT PROBLEM. PT DENIES NEED FOR PAIN MEDS AT THIS TIME.
[2021-03-05 06:59] LABS: CALCIUM 8.1 mg/dL (8.4-10.2); CREATININE, serum 1.19 (0.66-1.25); POTASSIUM 4.6 mmol/L (3.4-5.0)
[2021-03-05 07:00] LABS: BASO % 0.4 % (0.0-2.0); EOS # 0.1 (0.0-0.7); EOS % 2.9 % (0-4.0); GRAN # 3.1 (1.4-6.5); GRAN % 67.9 % (42.2-75.2); LYMPH # 0.8 (1.2-3.4); LYMPH % 17.5 % (20.0-51.0); MEAN CELL VOLUME 90 fl (80.0-100.0); MEAN CORPUSCULAR HGB CONC 31 g/dl (33.0-37.0); MEAN PLATELET VOLUME 10.4 fl (7.4-10.4); MONO # 0.5 (0.1-0.6); MONO % 10.9 % (1.7-9.3); PLATELET COUNT 235 K/mm3 (130-400); RED BLOOD COUNT 3.36 M/mm3 (4.20-5.60); REDCELL DISTRIBUTION WIDTH-CV 14.7 % (11.5-14.5)
[2021-03-05 07:01] LABS: HEMATOCRIT 30.1 % (42.0-52.0); HEMOGLOBIN 9.4 g/dl (13.5-18.0); MEAN CORPUSCULAR HEMOGLOBIN 28 pg (27.0-31.0)
[2021-03-05 07:36] VITALS: BP 131/64; PULSE 59; TEMP 98.1
--- NOTE | 2021-03-05 08:30 | NUR ---
PATIENT ALERT & ORIENTED X4. VITAL SIGNS STABLE. DENIES PAIN AT THIS TIME. TOLERATING GENERAL DIET AND DENIES N/V. PATIENT ADMITTED FOR RIGHT TOTAL KNEE REPLACEMENT. RTK ALLIE INTACT AND DRESSING CHANGED TO AQUACELL. PATIENT TOLERATED PROCEDURE. DORSALIS PEDIS AND POSTERIOR TIBIAL PULSES 1+. BILATERAL LOWER EXTREMITY PITTING 1+. ALL OTHER ASSESSMENTS WITHIN NORMAL LIMITS. PICC LINE IN RIGHT UPPER ARM TO INT FLUSHES EASILY WITH NO REDNESS, DRAINING, OR EDEMA. GLUCOSE LEVEL 208. GAVE 6 UNITS INSULIN PER SLIDING SCALE ORDERS. PATIENT DID NOT EAT BREAKFAST SO SCHEDULED 4 UNITS INSULIN WITHHELD. PATIENT DENIES OTHER NEESD AT THIS TIME. WILL CONTINUE TO MONITOR.
--- NOTE | 2021-03-05 08:40 | NUR ---
Contacted Cath-lab, Dr. Gastelum, and Dr. Emanuel. The plan is to exchange midline into the SVC and/or insertion of a central vascular access device Monday, 03/08 at 0800. Explained plan to patient. consent signed.
--- NOTE | 2021-03-05 09:50 | NUR ---
AGREE WITH [facility] CLINICMaryanne RODRIGUEZ'S ASSESSMENTS TODAY. DRESSING CHANGE COMPLETE, SURGICAL WOUNDS CLOSED WITH ALLIE.
[2021-03-05 12:11] VITALS: BP 104/50; PULSE 59; TEMP 98.1
--- NOTE | 2021-03-05 13:53 | NUR ---
[place] PICC Nurse staffed with this Food And Beverage Director. She recommending the patient receive his IV antibiotics at the [facility]. SW met with the patient follow up and he was in agreeance with the above plan. The patient is walking 300 ft this day with PT and they recommend home with spouse. *Discharge disposition at this time: Home with . Possible IV antiobiotics at the [facility]
--- NOTE | 2021-03-05 15:03 | NUR ---
PATIENT RESTING IN BED. PATIENT ASSISTED TO RESTROOM X 1 WITH WALKER & GAITBELT. PATIENT VOIDED MODERATE UNMEASURED AMOUNT. IV VANCOMYCIN ADMINSTERED VIA PUMP PER ORDERS. PATIENT DENIES PAIN AT THIS TIME. NO OTHER NEEDS AT THIS TIME. PATIENT INSTRUCTED TO CALL FOR ASSISTANCE TO GET UP OUT OF BED.
[2021-03-05 15:52] VITALS: BP 133/62; PULSE 58; TEMP 98.6
--- NOTE | 2021-03-05 18:00 | NUR ---
PATIENT WATCHING TV IN BED. EVENING MEAL EATEN AND INSULIN ADMINISTERED PER ORDERS. IV VANCOMYCIN STILL RUNNING PER ORDERS. PATIENT DENIES OTHER NEEDS AT THIS TIME. WILL CONTINUE TO MONITOR AND REPORT OFF TO REPAIR WEAVER STAFF.
--- NOTE | 2021-03-05 20:30 | NUR ---
PT WATCHING TV IN BED. IS ALERT AND ORIENTED X4. HAS RT KNEE IMMOBILIZER ON, AQUACEL DRSG INTACT. HAS BILATERAL LOWER LEG EDEMA. DOES NOT LIKE THE SCDS, DOES GET LOVENOX FOR DVT PROPHYLAXIS. DENIES NEED FOR PAIN MEDS AT THIS TIME.
[2021-03-05 20:39] VITALS: BP 140/58; PULSE 60; TEMP 98.4
[2021-03-06 01:41] VITALS: BP 164/62; PULSE 63; TEMP 98
--- NOTE | 2021-03-06 03:15 | NUR ---
PT AWAKE. IV ANTIBIOTIC CONNECTED TO RIGHT ARM MIDLINE, INFUSING WITHOUT PROBLEM. DENIES NEED FOR PAIN MEDS AT THIS TIME.
[2021-03-06 04:03] VITALS: BP 131/60; PULSE 61; TEMP 98.4
--- NOTE | 2021-03-06 06:15 | NUR ---
UNABLE TO DRAW LAB OFF MIDLINE. PT REFUSES PERIPHERAL STICK.
[2021-03-06 08:08] VITALS: BP 153/64; PULSE 59; TEMP 98
--- NOTE | 2021-03-06 10:35 | NUR ---
Patient resting in bed at this time. Patient is alert and oriented, answers questions appropriately. RLE is edemetous, aquacel and immobilizer in place. CMS and cap refill WNL. Patient denies pain and is ambulating/transferring well. Patient is very anxious about his midline. Staff was unable to draw blood from it this morning and patient refused to allow lab to draw blood. Informed patient that hospitalist and ortho would be informed of the problem. Patient denies further needs at this time, call light within reach.
[2021-03-06 12:27] VITALS: BP 142/67; PULSE 60; TEMP 98.3
[2021-03-06 15:39] VITALS: BP 147/67; PULSE 59; TEMP 98
--- NOTE | 2021-03-06 17:49 | NUR ---
Patient resting in bed at this time. Patient continues to deny pain. Has refused breakfast and lunch; encouraged patient to eat dinner in order to promote healing and maintain glucose levels, patient states he will attempt. Denies nausea, states he does not have an appetite. Midline catheter flushes well but cannot get blood to return on either line, hospitalist and ortho aware. Patient refusing lab draws. Patient educated that labs are needed to monitor condition and adjust medications, patient verbalized understanding, but continues to refuse. Denies further needs, call light within reach.
[2021-03-06 20:26] VITALS: BP 177/70; PULSE 54; TEMP 98.1
--- NOTE | 2021-03-06 20:36 | NUR ---
PT IN BED. TAKES HS MEDS WITHOUT PROBLEM. SBP 177, MEDICATED WITH HYDRALAZINE 10MG IV AT THIS TIME. RT KNEE IMMOBILIZER ON, AQUACEL DRSG INTACT. REFUSES SHAVE AT THIS TIME. SIGNS CONSENT FOR SURGERY ON MONDAY. RT MIDLINE INTACT.
--- NOTE | 2021-03-06 21:00 | NUR ---
PT REFUSES HS BLOOD SUGAR. STATED "I'M DONE WITH BEING STUCK".
[2021-03-07 00:51] VITALS: BP 147/63; PULSE 65; TEMP 98.3
--- NOTE | 2021-03-07 03:02 | NUR ---
IV ANTIBIOTIC INFUSING TO RT MIDLINE WITHOUT PROBLEM. PT DENIES NEED FOR PAIN MEDS.
[2021-03-07 04:12] VITALS: BP 136/54; PULSE 63; TEMP 98.3
--- NOTE | 2021-03-07 06:38 | NUR ---
UNABLE TO GET LAB DRAWN FROM MIDLINE. PT DID ALLOW BLOOD SUGAR CHECK. REFUSED PERIPHERAL STICK FOR LABS.
[2021-03-07 07:39] VITALS: BP 155/72; PULSE 59; TEMP 98
[2021-03-07 11:47] VITALS: BP 121/53; PULSE 62; TEMP 98.3
[2021-03-07 17:20] VITALS: BP 161/67; PULSE 61; TEMP 98
--- NOTE | 2021-03-07 19:15 | NUR ---
Patient resting in bed at this time. Patient is alert and oriented, answers questions appropriately. Patient denies pain or nausea at this time. Dressing to RLE in place, CDI. Patient denies needs, call light within reach.
--- NOTE | 2021-03-07 19:45 | NUR ---
PT ASSISTED TO BATHROOM, HAS LARGE BM AND BACK TO BED.
--- NOTE | 2021-03-07 21:00 | NUR ---
PT TAKES HS MEDS. LOVENOX HELD. MIDLINE PATENT, NO BLOOD RETURN. PT AWARE OF NPO AFTER MIDNIGHT. DENIES PAIN AT THIS TIME. IMMOBILIZER ON RT KNEE, AQUACEL DRSG INTACT.
[2021-03-07 21:01] VITALS: BP 133/50; PULSE 62; TEMP 98.3
[2021-03-08] VITALS (15 sets, daily range): BP systolic 111–164; BP diastolic 57–85; PULSE 59–63; TEMP 97.9–98.5
--- NOTE | 2021-03-08 01:00 | NUR ---
PT AWAKE WATCHING TV. IS NPO FOR SURGERY THIS AM. OFFERS NO COMPLAINTS AT THIS TIME.
--- NOTE | 2021-03-08 04:35 | NUR ---
DOSE OF PO VALIUM 5MG GIVEN FOR PENDING LAB DRAW ANXIETY.
--- NOTE | 2021-03-08 05:09 | NUR ---
PT REPORTS NEEDING PAIN MEDS. OXYCODONE 10MG PO GIVEN.
[2021-03-08 07:33] LABS: BASO % 0.2 % (0.0-2.0); EOS # 0.1 (0.0-0.7); EOS % 2.4 % (0-4.0); GRAN # 3.7 (1.4-6.5); GRAN % 72.3 % (42.2-75.2); HEMOGLOBIN 10.1 g/dl (13.5-18.0); LYMPH # 0.8 (1.2-3.4); LYMPH % 15.7 % (20.0-51.0); MEAN CELL VOLUME 87 fl (80.0-100.0); MEAN CORPUSCULAR HEMOGLOBIN 29 pg (27.0-31.0); MEAN CORPUSCULAR HGB CONC 33 g/dl (33.0-37.0); MEAN PLATELET VOLUME 9.5 fl (7.4-10.4); MONO # 0.5 (0.1-0.6); MONO % 9.2 % (1.7-9.3); PLATELET COUNT 278 K/mm3 (130-400); RED BLOOD COUNT 3.55 M/mm3 (4.20-5.60); REDCELL DISTRIBUTION WIDTH-CV 14.8 % (11.5-14.5)
--- NOTE | 2021-03-08 07:59 | NUR ---
Patient to cath lab radiological technologist with [facility] for picc line placement.
[2021-03-08 08:09] LABS: CALCIUM 8.5 mg/dL (8.4-10.2); CREATININE, serum 1.23 (0.66-1.25); POTASSIUM 4.2 mmol/L (3.4-5.0)
--- NOTE | 2021-03-08 08:20 | NUR ---
To CL for procedure via bed. Patient very anxious, but able to answer questions and states understanding of procedure. AIVS contacted regarding procedure. RN states catheter is at 30cm and considered a midline and will not be able to be manipulated. Will inform Dr. Rollins and proceed from there.
--- NOTE | 2021-03-08 10:30 | NUR ---
Patient returned from [employer], picc line place to [facility], dressing intact. Blood return obtained-Lr to gravity for pre op. Patient prepped for OR. Am medications given with sip of water. Vss. Novolog per sliding scale. Right leg immobiizer brace on & aquacell dressing intact. Patient provided with hygine. Incontinence care provided. Aidan transported patient to OR. I did speak with Arsenio Garcia about medications given before surgery.
--- NOTE | 2021-03-08 14:30 | NUR ---
In room post-op. Patient had a PICC placed in cath-lab today. PICC intact right upper arm with gauze dressing noted. sterile PICC dressing change done with insertion site cleansed with chloraprep x 1, chlorhexidine impreganted disk applied, skin prep, stat lock, and tegaderm applied. no signs or symptoms of IV complications noted. no concerns voiced. wrapped with an triston to protect catheter.
--- NOTE | 2021-03-08 15:20 | NUR ---
CRITICAL HIGH VANC TROUGH CALLED TO PHARMACY [facility] 25.7
--- NOTE | 2021-03-08 19:47 | NUR ---
Patient rested well post op. Vss on o2. Neon tab for pain per request. Cyro cuff to right knee per orders. Immobilizer & occlusive dressing intact. Scds to LLE. He tolerated dinner without nausea. Blood sugar stable. Picc to SHRADDHA INT. Bedside report to shirin
--- NOTE | 2021-03-08 21:00 | NUR ---
Pt. sitting up in bed. Pt. is A&OX3, assessment complete. PICC to rt. upperarm patent. Pt. reports pain at a 4 on pain scale, will give pain meds per orders. Pt. denies further needs, call light within reach.
[2021-03-09 00:10] VITALS: BP 147/69; PULSE 92; TEMP 98.1
[2021-03-09 03:33] VITALS: BP 128/58; PULSE 59; TEMP 98
[2021-03-09 07:30] LABS: BASO % 0.3 % (0.0-2.0); EOS # 0.1 (0.0-0.7); EOS % 2.4 % (0-4.0); GRAN # 4.4 (1.4-6.5); LYMPH # 0.7 (1.2-3.4); LYMPH % 12.3 % (20.0-51.0); MEAN CELL VOLUME 87 fl (80.0-100.0); MEAN CORPUSCULAR HGB CONC 32 g/dl (33.0-37.0); MEAN PLATELET VOLUME 9.9 fl (7.4-10.4); MONO # 0.6 (0.1-0.6); MONO % 9.7 % (1.7-9.3); PLATELET COUNT 262 K/mm3 (130-400); RED BLOOD COUNT 3.11 M/mm3 (4.20-5.60); REDCELL DISTRIBUTION WIDTH-CV 14.7 % (11.5-14.5)
[2021-03-09 07:33] LABS: HEMOGLOBIN 8.6 g/dl (13.5-18.0); MEAN CORPUSCULAR HEMOGLOBIN 28 pg (27.0-31.0)
[2021-03-09 07:40] LABS: CALCIUM 8.2 mg/dL (8.4-10.2); CREATININE, serum 1.14 (0.66-1.25); POTASSIUM 4.2 mmol/L (3.4-5.0)
[2021-03-09 08:00] VITALS: BP 102/60; PULSE 60; TEMP 98.2
[2021-03-09] MEDS ORDERED: NORCO 325 MG-7.1 TAB PO (08:58)
[2021-03-09] MEDS ORDERED: NOVOLOG 100U100 U/M1 SQ ×2 (08:58→11:44)
[2021-03-09] MEDS ORDERED: VANCO 1 GR1 GM/250 M IV (09:06)
--- NOTE | 2021-03-09 09:11 | NUR ---
PT UP TO BR WITH SBA, VOIDED AND RETURNED TO BED FOR BREAKFAST. IV ABX RUNNING ORDERED. PT ATE 100 % OF BREAKFAST. PAIN WELL CONTROLLED WITH PO PAIN MEDS. ORTHO AND HOSPITALIST IN TO SEE PT. PLAN ON DISCHARGE LATER TONIGHT AFTER NEXT DOSE OF VANCO IS COMPLETE. DRESSING TO RIGHT KNEE CDI WITH OCCLUSIVE CORI WRAP OVER INCISION.
--- NOTE | 2021-03-09 09:59 | NUR ---
Initial visit; greeted patient as he proceeded with Physical Therapist.
[2021-03-09 12:00] VITALS: BP 120/50; PULSE 60; TEMP 97.7
[2021-03-09 16:00] VITALS: BP 102/46; PULSE 60; TEMP 97.6
--- NOTE | 2021-03-09 16:33 | NUR ---
Machine Stapler provided referral to [facility] and they instructed the patient to report the patient admission at 0700 on 03/10. SW presented the IM form to the patient. He verbalized understanding and gave SW permission to sign the form on his behalf. A copy was provided to the patient.
--- NOTE | 2021-03-09 16:59 | NUR ---
The patient to tentatively discharge home today, 03/09 home with spouse, Crystal. The patient and spouse are agreeable to reporting to admissions to check in for IV antiobiotics at 0700 on 03/10. Discharge orders to [facility]. There are no additional needs.
--- NOTE | 2021-03-09 20:45 | NUR ---
Pt. sitting up in bed at this time. Pt. is A&OX3, assessment complete. PICC to rt. upper arm patent. Dose of vanco complete at this time. Pt. to discharge at this time. Paper work and education given to pt. by MISTY Cesar. This nurse reviewed info and answered any questions. Pt. verbalizes understanding. PICC to rt. upper arm flushed and triston wrapped. Pt. getting dressed with at bedside. Pt. will call when ready.
--- NOTE | 2021-03-09 21:00 | NUR ---
Pt. escorted out by wheelchair by this nurse.
[2021-03-15] MEDS ORDERED: NOVOLOG 100U100 U/M1 SQ (09:18)
[2021-03-15] MEDS ORDERED: VANCO 1.51.5 GM/250 IV (09:20)
[2021-04-26] MEDS ORDERED: DUO-KAPS1 CAP PO (08:38)
[2021-04-26] MEDS ORDERED: HAIRSKINNAILS PO (08:39)
[2021-05-11] MEDS ORDERED: DORYX100 PO (08:42)
== END 2021-03-09 21:03 | disposition home or self-care (01) | DRG 486 ==
LOC: SURG 16:56
PROVIDERS: Internal Medicine; Orthopaedic Surgery; Physician Assistant; ADMIT Student in an Organized Health Care Education/Training Program
PROC: 0SUV09Z Supplement Right Knee Joint, Tibial Surface with Liner, Open Approach (ICD-10-PCS; 2021-03-02)
PROC: 3E0U029 Introduction of Other Anti-infective into Joints, Open Approach (ICD-10-PCS; 2021-03-02)
PROC: 0SPC09Z Removal of Liner from Right Knee Joint, Open Approach (ICD-10-PCS; principal; 2021-03-02 15:45)
PROC: 0SPC09Z Removal of Liner from Right Knee Joint, Open Approach (ICD-10-PCS; 2021-03-08)
PROC: 0SUV09Z Supplement Right Knee Joint, Tibial Surface with Liner, Open Approach (ICD-10-PCS; 2021-03-08)
DX: T84.53XA Infection and inflammatory reaction due to internal right knee prosthesis, initial encounter (principal); M00.061 Staphylococcal arthritis, right knee; E11.9 Type 2 diabetes mellitus without complications; I48.91 Unspecified atrial fibrillation; I10 Essential (primary) hypertension; I25.10 Atherosclerotic heart disease of native coronary artery without angina pectoris; E78.5 Hyperlipidemia, unspecified; Z95.1 Presence of aortocoronary bypass graft; Z79.4 Long term (current) use of insulin; Z79.01 Long term (current) use of anticoagulants; Z88.1 Allergy status to other antibiotic agents; Z96.651 Presence of right artificial knee joint; B95.7 Other staphylococcus as the cause of diseases classified elsewhere
CPT/HCPCS: 99222-AI; 99231-AI; 99232-AI; 99239; A9284; C1713; C1751; C1769; C1776; C1892; J0360; J1100; J1644; J1650; J1815; J2250; J2270; J2370; J2405; J2704; J2795; J3010; J3260; J3370; J7030; J7040; J7050; J7120; L1830; Q9967

== ENCOUNTER → 2021-05-14 | Outpatient (CLI) | payer MEDICARE ==
[~2021-05-14] MED LIST changes: +BETAPACE 120MG120 MG PO; +DORYX100 PO; +DUO-KAPS1 CAP PO; +FARXIGA10 PO; +HAIRSKINNAILS PO; +NOVOLOG 100U100 U/M1 SQ; +VANCO 1 GR1 GM/250 M IV; +VANCO 1.51.5 GM/250 IV
== END ==
LOC: EDSTATUS 10:15 → SDCO 10:15 → ZCOL.LAB 12:00
DX: Z20.822 Contact with and (suspected) exposure to COVID-19 (principal)

== ENCOUNTER → 2021-06-08 | Outpatient (RCR) | payer MEDICARE ==
[2021-03-10 18:23] VITALS: BP 104/57; PULSE 64; TEMP 98.8
[2021-03-11 08:29] VITALS: BP 104/53; PULSE 60; TEMP 98.4
[2021-03-11 18:14] VITALS: BP 112/51; PULSE 60; TEMP 97.6
--- NOTE | 2021-03-12 07:15 | NUR ---
[facility].Ok per Joan to start vancomycin immediatly after trough drawn.
[2021-03-12 07:30] VITALS: BP 126/75; PULSE 64; TEMP 97.2
--- NOTE | 2021-03-12 07:49 | NUR ---
Trough results received,29.08.called to goldie Gomes.Ordered to stop infusion.Dosing will be adjusted for tonight's dose.Pt will return for this evening medication.
[2021-03-12 08:05] LABS: CREATININE, serum 1.6 (0.66-1.25)
[2021-03-13 07:54] VITALS: BP 130/54; PULSE 63; TEMP 98.6
[2021-03-15 09:04] LABS: BASO % 0.4 % (0.0-2.0); EOS # 0.1 (0.0-0.7); EOS % 2.3 % (0-4.0); GRAN # 4.2 (1.4-6.5); GRAN % 74.2 % (42.2-75.2); LYMPH # 0.7 (1.2-3.4); LYMPH % 11.7 % (20.0-51.0); MEAN CELL VOLUME 88 fl (80.0-100.0); MEAN CORPUSCULAR HGB CONC 31 g/dl (33.0-37.0); MEAN PLATELET VOLUME 9.7 fl (7.4-10.4); MONO # 0.6 (0.1-0.6); MONO % 10.9 % (1.7-9.3); PLATELET COUNT 253 K/mm3 (130-400); RED BLOOD COUNT 2.96 M/mm3 (4.20-5.60); REDCELL DISTRIBUTION WIDTH-CV 15.3 % (11.5-14.5)
[2021-03-15 09:06] LABS: HEMOGLOBIN 8.1 g/dl (13.5-18.0); MEAN CORPUSCULAR HEMOGLOBIN 27 pg (27.0-31.0)
[2021-03-15 09:11] LABS: ALBUMIN 3.3 gm/dL (3.5-5.0); BILIRUBIN,TOTAL 0.2 mg/dL (0.0-1.0); C-REACTIVE PROTEIN 1.7 mg/dL (0.0-0.9); CALCIUM 8.5 mg/dL (8.4-10.2); CREATININE, serum 1.67 (0.66-1.25); POTASSIUM 4.1 mmol/L (3.4-5.0); TOTAL PROTEIN 6.4 gm/dL (6.4-8.2)
[2021-03-15 09:14] VITALS: BP 166/82; PULSE 64; TEMP 98.3
[2021-03-15 10:04] LABS: ERYTHROCYTE SEDIMENTATION RATE 84 mm/hr (0-30)
[2021-03-16 07:50] VITALS: BP 144/65; PULSE 62; TEMP 98.4
[2021-03-17 08:22] VITALS: BP 131/71; PULSE 57; TEMP 98.2
[2021-03-18 08:49] VITALS: BP 134/77; PULSE 60; TEMP 98.4
[2021-03-19 08:33] VITALS: BP 152/104; PULSE 64; TEMP 98.3
[2021-03-20 08:25] VITALS: BP 130/72; PULSE 61; TEMP 98.5
[2021-03-21 09:15] VITALS: BP 145/81; PULSE 62; TEMP 98.6
[2021-03-22 08:15] VITALS: BP 179/75; PULSE 64; TEMP 98.6
[2021-03-22 08:22] LABS: BASO % 0.2 % (0.0-2.0); EOS # 0.1 (0.0-0.7); EOS % 2.5 % (0-4.0); GRAN # 3.5 (1.4-6.5); GRAN % 73.3 % (42.2-75.2); LYMPH # 0.7 (1.2-3.4); LYMPH % 14.4 % (20.0-51.0); MEAN CELL VOLUME 86 fl (80.0-100.0); MEAN CORPUSCULAR HGB CONC 31 g/dl (33.0-37.0); MEAN PLATELET VOLUME 9.7 fl (7.4-10.4); MONO # 0.5 (0.1-0.6); MONO % 9.4 % (1.7-9.3); PLATELET COUNT 220 K/mm3 (130-400); RED BLOOD COUNT 3.24 M/mm3 (4.20-5.60); REDCELL DISTRIBUTION WIDTH-CV 16.2 % (11.5-14.5)
[2021-03-22 08:23] LABS: HEMOGLOBIN 8.8 g/dl (13.5-18.0); MEAN CORPUSCULAR HEMOGLOBIN 27 pg (27.0-31.0)
[2021-03-22 08:37] LABS: ALBUMIN 3.7 gm/dL (3.5-5.0); BILIRUBIN,TOTAL 0.6 mg/dL (0.0-1.0); C-REACTIVE PROTEIN 1.7 mg/dL (0.0-0.9); CALCIUM 8.6 mg/dL (8.4-10.2); CREATININE, serum 1.48 (0.66-1.25); POTASSIUM 4.3 mmol/L (3.4-5.0)
[2021-03-22 08:43] LABS: ERYTHROCYTE SEDIMENTATION RATE 73 mm/hr (0-30)
[2021-03-23 08:10] VITALS: BP 103/62; PULSE 66; TEMP 98.5
[2021-03-24 08:54] VITALS: BP 129/61; PULSE 64; TEMP 98.4
[2021-03-25 08:05] VITALS: BP 127/50; PULSE 59; TEMP 98.8
[2021-03-26 08:33] VITALS: BP 141/63; PULSE 61; TEMP 97.9
[2021-03-27 08:21] VITALS: BP 147/68; PULSE 70; TEMP 97.9
[2021-03-28 08:13] VITALS: BP 160/73; PULSE 65; TEMP 97.8
[2021-03-29 08:44] VITALS: BP 146/70; PULSE 61; TEMP 98.2
[2021-03-29 08:56] LABS: BASO % 0.4 % (0.0-2.0); EOS # 0.1 (0.0-0.7); EOS % 2.4 % (0-4.0); LYMPH % 21.1 % (20.0-51.0); MEAN CELL VOLUME 87 fl (80.0-100.0); MEAN CORPUSCULAR HGB CONC 31 g/dl (33.0-37.0); MEAN PLATELET VOLUME 9.8 fl (7.4-10.4); MONO # 0.5 (0.1-0.6); MONO % 10.7 % (1.7-9.3); PLATELET COUNT 204 K/mm3 (130-400); RED BLOOD COUNT 3.26 M/mm3 (4.20-5.60); REDCELL DISTRIBUTION WIDTH-CV 16.3 % (11.5-14.5)
[2021-03-29 08:59] LABS: HEMATOCRIT 28.2 % (42.0-52.0); HEMOGLOBIN 8.6 g/dl (13.5-18.0); MEAN CORPUSCULAR HEMOGLOBIN 26 pg (27.0-31.0)
[2021-03-29 09:04] LABS: ALBUMIN 3.6 gm/dL (3.5-5.0); BILIRUBIN,TOTAL 0.5 mg/dL (0.0-1.0); C-REACTIVE PROTEIN 1.2 mg/dL (0.0-0.9); CALCIUM 8.8 mg/dL (8.4-10.2); CREATININE, serum 1.6 (0.66-1.25); POTASSIUM 4.2 mmol/L (3.4-5.0); TOTAL PROTEIN 7.1 gm/dL (6.4-8.2)
[2021-03-29 09:26] LABS: ERYTHROCYTE SEDIMENTATION RATE 59 mm/hr (0-30)
[2021-03-30 08:37] VITALS: BP 158/83; PULSE 62; TEMP 98.4
[2021-03-31 08:10] VITALS: BP 167/95; PULSE 69; TEMP 99
[2021-04-01 07:43] VITALS: BP 119/77; PULSE 66; TEMP 98
[2021-04-04 10:04] VITALS: BP 151/90; PULSE 65; TEMP 97.8
[2021-04-05 08:45] VITALS: BP 137/81; PULSE 59; TEMP 98
[2021-04-05 10:24] LABS: BASO % 0.8 % (0.0-2.0); EOS # 0.1 (0.0-0.7); EOS % 2.5 % (0-4.0); GRAN % 63.7 % (42.2-75.2); LYMPH # 1.1 (1.2-3.4); LYMPH % 22.9 % (20.0-51.0); MEAN CELL VOLUME 88 fl (80.0-100.0); MEAN CORPUSCULAR HGB CONC 31 g/dl (33.0-37.0); MEAN PLATELET VOLUME 10.2 fl (7.4-10.4); MONO # 0.5 (0.1-0.6); MONO % 9.7 % (1.7-9.3); PLATELET COUNT 295 K/mm3 (130-400); RED BLOOD COUNT 3.45 M/mm3 (4.20-5.60); REDCELL DISTRIBUTION WIDTH-CV 16.9 % (11.5-14.5)
[2021-04-05 10:28] LABS: HEMATOCRIT 30.2 % (42.0-52.0); HEMOGLOBIN 9.4 g/dl (13.5-18.0); MEAN CORPUSCULAR HEMOGLOBIN 27 pg (27.0-31.0)
[2021-04-05 10:38] LABS: ALBUMIN 3.9 gm/dL (3.5-5.0); BILIRUBIN,TOTAL 0.4 mg/dL (0.0-1.0); C-REACTIVE PROTEIN 0.7 mg/dL (0.0-0.9); CALCIUM 9.1 mg/dL (8.4-10.2); CREATININE, serum 1.38 (0.66-1.25); POTASSIUM 4.2 mmol/L (3.4-5.0); TOTAL PROTEIN 7.3 gm/dL (6.4-8.2)
[2021-04-05 10:51] LABS: ERYTHROCYTE SEDIMENTATION RATE 38 mm/hr (0-30)
[2021-04-06 08:11] VITALS: BP 150/62; PULSE 65; TEMP 98.3
[2021-04-07 07:42] VITALS: BP 128/77; PULSE 65; TEMP 98.6
[2021-04-08 08:08] VITALS: BP 143/78; PULSE 60; TEMP 97.8
[2021-04-09 07:54] VITALS: BP 138/78; PULSE 61; TEMP 97.9
[2021-04-10 09:56] VITALS: BP 174/87; PULSE 66; TEMP 97.5
[2021-04-11 07:48] VITALS: BP 139/58; PULSE 60; TEMP 98.1
[2021-04-12 08:20] VITALS: BP 121/53; PULSE 60; TEMP 97.9
[2021-04-12 08:21] LABS: BASO % 0.9 % (0.0-2.0); EOS # 0.1 (0.0-0.7); EOS % 2.2 % (0-4.0); GRAN # 2.9 (1.4-6.5); GRAN % 62.9 % (42.2-75.2); LYMPH # 1.1 (1.2-3.4); LYMPH % 24.3 % (20.0-51.0); MEAN CELL VOLUME 87 fl (80.0-100.0); MEAN CORPUSCULAR HGB CONC 31 g/dl (33.0-37.0); MEAN PLATELET VOLUME 9.9 fl (7.4-10.4); MONO # 0.4 (0.1-0.6); MONO % 9.5 % (1.7-9.3); PLATELET COUNT 214 K/mm3 (130-400); RED BLOOD COUNT 3.63 M/mm3 (4.20-5.60); REDCELL DISTRIBUTION WIDTH-CV 17.1 % (11.5-14.5)
[2021-04-12 08:33] LABS: ALANINE AMINOTRANSFERASE 41 U/L (4-49); ALBUMIN 3.8 gm/dL (3.5-5.0); ALKALINE PHOSPHATASE 70 U/L (50-136); ANION GAP 8 mmol/L (7-16); AST,SGOT 48 U/L (15-37); BILIRUBIN,TOTAL 0.4 mg/dL (0.0-1.0); BLOOD UREA NITROGEN 28 mg/dL (9-20); CALCIUM 9.1 mg/dL (8.4-10.2); CARBON DIOXIDE 23 mmol/L (22-30); CHLORIDE 106 mmol/L (98-107); CREATININE, serum 1.61 (0.66-1.25); GLUCOSE 215 mg/dL (74-106); POTASSIUM 4.5 mmol/L (3.4-5.0); SODIUM 136 mmol/L (137-145)
[2021-04-12 08:41] LABS: HEMATOCRIT 31.6 % (42.0-52.0); HEMOGLOBIN 9.8 g/dl (13.5-18.0); MEAN CORPUSCULAR HEMOGLOBIN 27 pg (27.0-31.0)
[2021-04-12 08:56] LABS: CREATINE KINASE 745 U/L (55-170)
[2021-04-12 09:17] LABS: ERYTHROCYTE SEDIMENTATION RATE 35 mm/hr (0-30)
[2021-04-12 09:32] LABS: C-REACTIVE PROTEIN < 0.5 mg/dL (0.0-0.9)
[2021-04-13 08:30] VITALS: BP 138/70; PULSE 77; TEMP 98.3
[2021-04-14 08:55] VITALS: BP 149/84; PULSE 55; TEMP 98.1
[2021-04-15 08:22] VITALS: BP 154/84; PULSE 67; TEMP 98
[2021-04-16 08:39] VITALS: BP 147/83; PULSE 61; TEMP 98.6
[2021-04-17 09:18] VITALS: BP 135/79; PULSE 66; TEMP 97.9
[2021-04-18 09:27] VITALS: BP 151/78; PULSE 61; TEMP 97.7
[2021-04-19 08:41] VITALS: BP 141/61; PULSE 63; TEMP 98
[2021-04-19 08:45] LABS: BASO % 0.5 % (0.0-2.0); EOS # 0.1 (0.0-0.7); EOS % 2.2 % (0-4.0); GRAN # 2.5 (1.4-6.5); GRAN % 61.3 % (42.2-75.2); LYMPH % 23.9 % (20.0-51.0); MEAN CELL VOLUME 87 fl (80.0-100.0); MEAN CORPUSCULAR HGB CONC 31 g/dl (33.0-37.0); MEAN PLATELET VOLUME 10.2 fl (7.4-10.4); MONO # 0.5 (0.1-0.6); MONO % 11.9 % (1.7-9.3); PLATELET COUNT 209 K/mm3 (130-400); RED BLOOD COUNT 3.56 M/mm3 (4.20-5.60); REDCELL DISTRIBUTION WIDTH-CV 17.6 % (11.5-14.5)
[2021-04-19 08:47] LABS: HEMOGLOBIN 9.6 g/dl (13.5-18.0); MEAN CORPUSCULAR HEMOGLOBIN 27 pg (27.0-31.0)
[2021-04-19 09:07] LABS: ALBUMIN 3.7 gm/dL (3.5-5.0); BILIRUBIN,TOTAL 0.6 mg/dL (0.0-1.0); C-REACTIVE PROTEIN 0.6 mg/dL (0.0-0.9); CALCIUM 8.8 mg/dL (8.4-10.2); CREATININE, serum 1.41 (0.66-1.25); POTASSIUM 4.6 mmol/L (3.4-5.0); TOTAL PROTEIN 6.9 gm/dL (6.4-8.2)
[2021-04-19 09:11] LABS: ERYTHROCYTE SEDIMENTATION RATE 27 mm/hr (0-30)
[2021-04-20 08:31] VITALS: BP 150/84; PULSE 63; TEMP 98.3
[2021-04-21 08:14] VITALS: BP 140/68; PULSE 60; TEMP 97.8
[2021-04-22 07:57] VITALS: BP 119/73; PULSE 63; TEMP 98.1
[2021-04-26 08:46] VITALS: BP 134/77; PULSE 61; TEMP 98
[2021-04-26 09:13] LABS: BASO % 0.5 % (0.0-2.0); EOS # 0.1 (0.0-0.7); EOS % 2.3 % (0-4.0); GRAN # 2.9 (1.4-6.5); GRAN % 65.7 % (42.2-75.2); HEMOGLOBIN 10.2 g/dl (13.5-18.0); LYMPH # 0.9 (1.2-3.4); LYMPH % 20.1 % (20.0-51.0); MEAN CELL VOLUME 87 fl (80.0-100.0); MEAN CORPUSCULAR HEMOGLOBIN 27 pg (27.0-31.0); MEAN CORPUSCULAR HGB CONC 31 g/dl (33.0-37.0); MEAN PLATELET VOLUME 10.2 fl (7.4-10.4); MONO # 0.5 (0.1-0.6); MONO % 11.2 % (1.7-9.3); PLATELET COUNT 221 K/mm3 (130-400); RED BLOOD COUNT 3.77 M/mm3 (4.20-5.60)
[2021-04-26 09:14] LABS: HEMATOCRIT 32.6 % (42.0-52.0)
[2021-04-26 09:26] LABS: ALBUMIN 3.8 gm/dL (3.5-5.0); BILIRUBIN,TOTAL 0.5 mg/dL (0.0-1.0); CREATININE, serum 1.41 (0.66-1.25); POTASSIUM 4.4 mmol/L (3.4-5.0); TOTAL PROTEIN 7.1 gm/dL (6.4-8.2)
[2021-04-26 09:30] LABS: C-REACTIVE PROTEIN 0.5 mg/dL (0.0-0.9)
[2021-04-26 09:58] LABS: ERYTHROCYTE SEDIMENTATION RATE 22 mm/hr (0-30)
[2021-05-04 08:43] VITALS: BP 125/77; PULSE 59; TEMP 98.4
[2021-05-04 08:54] LABS: BASO % 0.6 % (0.0-2.0); EOS # 0.1 (0.0-0.7); EOS % 2.6 % (0-4.0); GRAN # 3.2 (1.4-6.5); GRAN % 59.2 % (42.2-75.2); HEMOGLOBIN 11.3 g/dl (13.5-18.0); LYMPH # 1.4 (1.2-3.4); LYMPH % 25.5 % (20.0-51.0); MEAN CELL VOLUME 88 fl (80.0-100.0); MEAN CORPUSCULAR HEMOGLOBIN 27 pg (27.0-31.0); MEAN CORPUSCULAR HGB CONC 31 g/dl (33.0-37.0); MEAN PLATELET VOLUME 10.3 fl (7.4-10.4); MONO # 0.7 (0.1-0.6); MONO % 11.9 % (1.7-9.3); PLATELET COUNT 236 K/mm3 (130-400); RED BLOOD COUNT 4.18 M/mm3 (4.20-5.60); REDCELL DISTRIBUTION WIDTH-CV 18.3 % (11.5-14.5)
[2021-05-04 09:08] LABS: ALANINE AMINOTRANSFERASE 26 U/L (4-49); ALBUMIN 4.1 gm/dL (3.5-5.0); ALKALINE PHOSPHATASE 68 U/L (50-136); ANION GAP 6 mmol/L (7-16); AST,SGOT 26 U/L (15-37); BILIRUBIN,TOTAL 0.6 mg/dL (0.0-1.0); BLOOD UREA NITROGEN 29 mg/dL (9-20); C-REACTIVE PROTEIN < 0.5 mg/dL (0.0-0.9); CALCIUM 9.3 mg/dL (8.4-10.2); CARBON DIOXIDE 26 mmol/L (22-30); CHLORIDE 107 mmol/L (98-107); CREATININE, serum 1.47 (0.66-1.25); GLUCOSE 176 mg/dL (74-106); HEMATOCRIT 36.7 % (42.0-52.0); POTASSIUM 4.7 mmol/L (3.4-5.0); SODIUM 139 mmol/L (137-145); TOTAL PROTEIN 7.4 gm/dL (6.4-8.2)
[2021-05-04 09:14] LABS: ERYTHROCYTE SEDIMENTATION RATE 16 mm/hr (0-30)
[2021-05-04 09:54] LABS: CHOLESTEROL RISK RATIO 5.2
[2021-05-04 09:55] LABS: THYROID STIMULATING HORMONE 2.37 uIU/mL (0.465-4.680)
[2021-05-11 08:42] VITALS: BP 135/66; PULSE 69; TEMP 98.3
[2021-05-11 09:05] LABS: BASO % 0.7 % (0.0-2.0); EOS # 0.1 (0.0-0.7); EOS % 2.1 % (0-4.0); GRAN # 2.7 (1.4-6.5); GRAN % 62.2 % (42.2-75.2); HEMOGLOBIN 10.8 g/dl (13.5-18.0); LYMPH % 22.3 % (20.0-51.0); MEAN CELL VOLUME 88 fl (80.0-100.0); MEAN CORPUSCULAR HEMOGLOBIN 28 pg (27.0-31.0); MEAN CORPUSCULAR HGB CONC 32 g/dl (33.0-37.0); MEAN PLATELET VOLUME 10.2 fl (7.4-10.4); MONO # 0.6 (0.1-0.6); MONO % 12.5 % (1.7-9.3); PLATELET COUNT 185 K/mm3 (130-400); RED BLOOD COUNT 3.86 M/mm3 (4.20-5.60); REDCELL DISTRIBUTION WIDTH-CV 17.7 % (11.5-14.5)
[2021-05-11 09:19] LABS: ALANINE AMINOTRANSFERASE 22 U/L (4-49); ALBUMIN 3.8 gm/dL (3.5-5.0); ALKALINE PHOSPHATASE 63 U/L (50-136); ANION GAP 5 mmol/L (7-16); AST,SGOT 26 U/L (15-37); BILIRUBIN,TOTAL 0.5 mg/dL (0.0-1.0); BLOOD UREA NITROGEN 32 mg/dL (9-20); CALCIUM 9.3 mg/dL (8.4-10.2); CARBON DIOXIDE 25 mmol/L (22-30); CHLORIDE 108 mmol/L (98-107); CREATININE, serum 1.49 (0.66-1.25); GLUCOSE 140 mg/dL (74-106); POTASSIUM 4.3 mmol/L (3.4-5.0); SODIUM 139 mmol/L (137-145); TOTAL PROTEIN 6.9 gm/dL (6.4-8.2)
[2021-05-11 09:20] LABS: C-REACTIVE PROTEIN < 0.5 mg/dL (0.0-0.9)
[2021-05-11 09:30] LABS: ERYTHROCYTE SEDIMENTATION RATE 27 mm/hr (0-30)
[2021-05-18 08:28] VITALS: BP 152/76; PULSE 60; TEMP 98
[2021-05-25 08:34] VITALS: BP 145/77; PULSE 60; TEMP 98.3
[2021-05-25 08:38] LABS: BASO % 0.6 % (0.0-2.0); EOS # 0.1 (0.0-0.7); EOS % 2.5 % (0-4.0); GRAN # 2.8 (1.4-6.5); GRAN % 57.9 % (42.2-75.2); LYMPH # 1.2 (1.2-3.4); LYMPH % 25.8 % (20.0-51.0); MEAN CELL VOLUME 87 fl (80.0-100.0); MEAN CORPUSCULAR HEMOGLOBIN 28 pg (27.0-31.0); MEAN CORPUSCULAR HGB CONC 32 g/dl (33.0-37.0); MEAN PLATELET VOLUME 9.8 fl (7.4-10.4); MONO # 0.6 (0.1-0.6); PLATELET COUNT 185 K/mm3 (130-400); RED BLOOD COUNT 3.99 M/mm3 (4.20-5.60); REDCELL DISTRIBUTION WIDTH-CV 16.9 % (11.5-14.5)
[2021-05-25 08:40] LABS: HEMATOCRIT 34.5 % (42.0-52.0)
[2021-05-25 08:52] LABS: ALANINE AMINOTRANSFERASE 20 U/L (4-49); ALBUMIN 3.9 gm/dL (3.5-5.0); ALKALINE PHOSPHATASE 64 U/L (50-136); ANION GAP 7 mmol/L (7-16); AST,SGOT 25 U/L (15-37); BILIRUBIN,TOTAL 0.5 mg/dL (0.0-1.0); BLOOD UREA NITROGEN 31 mg/dL (9-20); CALCIUM 9.1 mg/dL (8.4-10.2); CARBON DIOXIDE 25 mmol/L (22-30); CHLORIDE 109 mmol/L (98-107); CREATININE, serum 1.54 (0.66-1.25); GLUCOSE 126 mg/dL (74-106); POTASSIUM 4.3 mmol/L (3.4-5.0); SODIUM 140 mmol/L (137-145)
[2021-05-25 08:55] LABS: C-REACTIVE PROTEIN < 0.5 mg/dL (0.0-0.9)
[2021-05-25 09:00] LABS: ERYTHROCYTE SEDIMENTATION RATE 17 mm/hr (0-30)
--- NOTE | 2021-05-25 11:42 | NUR ---
Pt calls to notify staff that colonoscopy is scheduled for 06/14/21. KVNG Monge notified. Plan to keep PICC line until procedure completed, and then DC it.
[~2021-06-08] VITALS: Ht 177.8 cm; Wt 129.5 kg
[2021-06-08 09:46] VITALS: BP 149/80; PULSE 60; TEMP 98.3
[2021-06-15 10:12] VITALS: BP 139/78; PULSE 66; TEMP 98
== END | disposition home or self-care (01) ==
LOC: EUO
PROVIDERS: Family Medicine; Internal Medicine Infectious Disease; Student in an Organized Health Care Education/Training Program
DX: E11.9 Type 2 diabetes mellitus without complications (principal); T84.53XA Infection and inflammatory reaction due to internal right knee prosthesis, initial encounter; I48.91 Unspecified atrial fibrillation; I10 Essential (primary) hypertension; I25.10 Atherosclerotic heart disease of native coronary artery without angina pectoris; E78.5 Hyperlipidemia, unspecified; Z95.2 Presence of prosthetic heart valve
CPT/HCPCS: J0878; J3370; J7050

== ENCOUNTER 2021-06-15 07:00 | Outpatient (RCR) | payer MEDICARE ==
[~2021-06-15 07:00] MED LIST changes: -BETAPACE 120MG120 MG PO; +LIPITOR 80MG80 MG PO; -LIPITOR20 MG PO
[2021-06-15 09:45] VITALS: BP 142/86; PULSE 62; TEMP 98
[2021-07-30] MEDS ORDERED: BETAPACE 120MG120 MG PO (09:56)
== END 2021-10-14 ==
LOC: EUO
DX: Z45.2 Encounter for adjustment and management of vascular access device (principal)

== ENCOUNTER → 2021-06-21 | Outpatient (CLI) | payer MEDICARE ==
[~2021-06-21] MED LIST changes: +BETAPACE 120MG120 MG PO; -LIPITOR 80MG80 MG PO; +LIPITOR20 MG PO
[2021-06-21 14:08] LABS: BASO % 0.4 % (0.0-2.0); EOS # 0.1 (0.0-0.7); EOS % 1.3 % (0-4.0); GRAN # 3.4 (1.4-6.5); GRAN % 63.3 % (42.2-75.2); HEMOGLOBIN 11.3 g/dl (13.5-18.0); LYMPH # 1.3 (1.2-3.4); LYMPH % 24.3 % (20.0-51.0); MEAN CELL VOLUME 89 fl (80.0-100.0); MEAN CORPUSCULAR HEMOGLOBIN 28 pg (27.0-31.0); MEAN CORPUSCULAR HGB CONC 31 g/dl (33.0-37.0); MEAN PLATELET VOLUME 10.1 fl (7.4-10.4); MONO # 0.6 (0.1-0.6); MONO % 10.5 % (1.7-9.3); PLATELET COUNT 193 K/mm3 (130-400); RED BLOOD COUNT 4.07 M/mm3 (4.20-5.60)
[2021-06-21 14:13] LABS: HEMATOCRIT 36.4 % (42.0-52.0)
[2021-06-21 14:19] LABS: ALBUMIN 4.1 gm/dL (3.5-5.0); BILIRUBIN,TOTAL 0.5 mg/dL (0.0-1.0); C-REACTIVE PROTEIN 0.7 mg/dL (0.0-0.9); CALCIUM 9.4 mg/dL (8.4-10.2); CREATININE, serum 1.54 (0.66-1.25); POTASSIUM 4.5 mmol/L (3.4-5.0); TOTAL PROTEIN 7.2 gm/dL (6.4-8.2)
[2021-06-21 14:28] LABS: ERYTHROCYTE SEDIMENTATION RATE 11 mm/hr (0-30)
== END ==
LOC: COL.LAB 13:21
PROVIDERS: Nurse Practitioner
DX: B99.9 Unspecified infectious disease (principal)

== ENCOUNTER → 2021-06-24 | Outpatient (CLI) | payer MEDICARE | LOC: ZCOL.LAB 10:42 | DX: B99.9 Unspecified infectious disease (principal) ==

== ENCOUNTER 2021-07-30 07:56 | Day surgery (SDC) | payer MEDICARE ==
[2021-07-30] VITALS (7 sets, daily range): BP systolic 138–200; BP diastolic 76–112; PULSE 69–74; TEMP 98.3
[~2021-07-30] VITALS: Ht 177.8 cm; Wt 129.0 kg
[~2021-07-30 07:56] MED LIST changes: -BETAPACE 120MG120 MG PO
[2021-07-30 09:46] LABS: HEMOGLOBIN 11.7 g/dl (13.5-18.0); MEAN CELL VOLUME 85 fl (80.0-100.0); MEAN CORPUSCULAR HEMOGLOBIN 28 pg (27.0-31.0); MEAN CORPUSCULAR HGB CONC 33 g/dl (33.0-37.0); PLATELET COUNT 171 K/mm3 (130-400); RED BLOOD COUNT 4.19 M/mm3 (4.20-5.60); REDCELL DISTRIBUTION WIDTH-CV 16.9 % (11.5-14.5)
[2021-07-30] MEDS ORDERED: BETAPACE 120MG120 MG PO (09:56)
[2021-07-30 10:03] LABS: CALCIUM 9.6 mg/dL (8.4-10.2); CREATININE, serum 1.65 mg/dL (0.72-1.25); MAGNESIUM 2.1 mg/dL (1.6-2.6); POTASSIUM 4.8 mmol/L (3.5-4.5)
[2021-07-30 10:04] LABS: HEMATOCRIT 35.8 % (42.0-52.0)
[2021-07-30 10:05] LABS: INR 1.7 (0.8-3.0); PROTHROMBIN TIME 18.8 SECONDS (9.7-12.8)
[2021-07-30 10:08] LABS: PARTIAL THROMBOPLASTIN TIME 37.6 SECONDS (26.0-37.0)
[2021-07-30 10:23] LABS: THYROID STIMULATING HORMONE 0.888 uIU/mL (0.350-4.940)
--- NOTE | 2021-07-30 10:30 | NUR ---
REPORT FROM JUAQUIN JAY POST CARDI[facility]ERSION, CALLED FOR EKG. PT SITTING UP IN BED, AWAKE, NO C/O. CALL LIGHT IN REACH
--- NOTE | 2021-07-30 11:00 | NUR ---
PT TAKES SNACK, SAT ON SIDE OF BED
--- NOTE | 2021-07-30 11:20 | NUR ---
DR BENITEZ CALLED CONERNING B/R READINGS, NO OTHER C/O, NEW ORDERS RECIVED. MEDICATION GIVEN ORDERED, PT RESTS IN BED, NO C/0. REVIEWED DISCHARGE INST. WITH PT ON SOTOLOL INCREASE TO 120MG BID, TO BE PICKED UP AT PHARMACY, ALSO REVIEWED MODERATE SEDATION PRECAUTIONS, NEXT APPT MADE AND GIVEN, WITH VERBAL UNDERSTANDING.
--- NOTE | 2021-07-30 12:05 | NUR ---
PT UP IN ROOM DRESSED, IV D'CD INTACT. NO C/O DIZZINESS OR PAIN. DISCHARGED WITH INSTRUCTIONS VIA W/C TO CAR WITH
== END 2021-07-30 12:00 | disposition home or self-care (01) ==
LOC: COL.CAR 07:56
PROVIDERS: Internal Medicine Cardiovascular Disease
DX: I48.91 Unspecified atrial fibrillation (principal); I25.10 Atherosclerotic heart disease of native coronary artery without angina pectoris; E78.5 Hyperlipidemia, unspecified; I10 Essential (primary) hypertension; G47.33 Obstructive sleep apnea (adult) (pediatric); E11.42 Type 2 diabetes mellitus with diabetic polyneuropathy; Z79.82 Long term (current) use of aspirin; Z79.899 Other long term (current) drug therapy; Z79.01 Long term (current) use of anticoagulants; Z20.822 Contact with and (suspected) exposure to COVID-19; Z99.89 Dependence on other enabling machines and devices; Z86.73 Personal history of transient ischemic attack (TIA), and cerebral infarction without residual deficits; Z79.84 Long term (current) use of oral hypoglycemic drugs
CPT/HCPCS: J2704

== ENCOUNTER → 2021-08-02 | Outpatient (CLI) | payer MEDICARE ==
[~2021-08-02] MED LIST changes: +BETAPACE 120MG120 MG PO
[2021-08-02 10:31] LABS: BASO % 0.3 % (0.0-2.0); EOS # 0.1 (0.0-0.7); EOS % 1.1 % (0-4.0); GRAN # 4.6 (1.4-6.5); GRAN % 68.8 % (42.2-75.2); LYMPH # 1.2 (1.2-3.4); LYMPH % 18.7 % (20.0-51.0); MEAN CELL VOLUME 84 fl (80.0-100.0); MEAN CORPUSCULAR HEMOGLOBIN 28 pg (27.0-31.0); MEAN CORPUSCULAR HGB CONC 33 g/dl (33.0-37.0); MEAN PLATELET VOLUME 9.7 fl (7.4-10.4); MONO # 0.7 (0.1-0.6); MONO % 10.8 % (1.7-9.3); PLATELET COUNT 190 K/mm3 (130-400); RED BLOOD COUNT 4.33 M/mm3 (4.20-5.60); REDCELL DISTRIBUTION WIDTH-CV 16.6 % (11.5-14.5)
[2021-08-02 10:35] LABS: HEMATOCRIT 36.5 % (42.0-52.0)
[2021-08-02 10:45] LABS: ALBUMIN 3.8 gm/dL (3.4-4.8); BILIRUBIN,TOTAL 0.6 mg/dL (0.2-1.2); C-REACTIVE PROTEIN 0.7 mg/dL (0.00-0.50); CALCIUM 9.6 mg/dL (8.4-10.2); CREATININE, serum 1.62 mg/dL (0.72-1.25); POTASSIUM 4.3 mmol/L (3.5-4.5); TOTAL PROTEIN 7.2 gm/dL (6.2-8.1)
[2021-08-02 10:56] LABS: ERYTHROCYTE SEDIMENTATION RATE 13 mm/hr (0-30)
== END ==
LOC: COL.LAB 10:00
PROVIDERS: Family Medicine
DX: B99.9 Unspecified infectious disease (principal)

== ENCOUNTER → 2021-08-25 | Day surgery (SDC) | payer MEDICARE ==
[~2021-08-25] VITALS: Ht 177.8 cm; Wt 129.0 kg
[2021-08-25 11:51] VITALS: BP 138/86; PULSE 71
[2021-08-25 12:33] LABS: HEMATOCRIT 37.7 % (42.0-52.0); HEMOGLOBIN 12.5 g/dl (13.5-18.0); MEAN CELL VOLUME 86 fl (80.0-100.0); MEAN CORPUSCULAR HEMOGLOBIN 28 pg (27.0-31.0); MEAN CORPUSCULAR HGB CONC 33 g/dl (33.0-37.0); MEAN PLATELET VOLUME 9.6 fl (7.4-10.4); PLATELET COUNT 166 K/mm3 (130-400); RED BLOOD COUNT 4.41 M/mm3 (4.20-5.60); REDCELL DISTRIBUTION WIDTH-CV 16.8 % (11.5-14.5)
[2021-08-25 12:40] LABS: INR 1.9 (0.8-3.0); PROTHROMBIN TIME 20.9 SECONDS (9.7-12.8)
[2021-08-25 13:15] VITALS: BP 143/74; PULSE 69
[2021-08-25 13:28] LABS: CALCIUM 9.5 mg/dL (8.4-10.2); CREATININE, serum 1.53 mg/dL (0.72-1.25); MAGNESIUM 2.1 mg/dL (1.6-2.6); POTASSIUM 4.5 mmol/L (3.5-4.5)
[2021-08-25 13:30] VITALS: BP 166/87; PULSE 70
[2021-08-25 13:45] VITALS: BP 162/92; PULSE 70
[2021-08-25 14:09] LABS: THYROID STIMULATING HORMONE 0.879 uIU/mL (0.350-4.940)
== END ==
LOC: COL.CAR 11:15
PROVIDERS: Internal Medicine Cardiovascular Disease
DX: I48.92 Unspecified atrial flutter (principal); I48.91 Unspecified atrial fibrillation; I25.10 Atherosclerotic heart disease of native coronary artery without angina pectoris; I13.10 Hypertensive heart and chronic kidney disease without heart failure, with stage 1 through stage 4 chronic kidney disease, or unspecified chronic kidney disease; E11.22 Type 2 diabetes mellitus with diabetic chronic kidney disease; E11.42 Type 2 diabetes mellitus with diabetic polyneuropathy; E11.59 Type 2 diabetes mellitus with other circulatory complications; I43 Cardiomyopathy in diseases classified elsewhere; N18.9 Chronic kidney disease, unspecified; E78.2 Mixed hyperlipidemia; G47.33 Obstructive sleep apnea (adult) (pediatric); Z95.0 Presence of cardiac pacemaker; Z79.01 Long term (current) use of anticoagulants; Z79.82 Long term (current) use of aspirin; Z95.1 Presence of aortocoronary bypass graft; Z79.899 Other long term (current) drug therapy; Z79.4 Long term (current) use of insulin; Z79.84 Long term (current) use of oral hypoglycemic drugs; Z87.891 Personal history of nicotine dependence
CPT/HCPCS: J2704; J7030

== ENCOUNTER → 2021-09-21 | Outpatient (CLI) | payer MEDICARE ==
[2021-09-21 16:28] LABS: BASO % 0.4 % (0.0-2.0); EOS % 0.6 % (0-4.0); GRAN # 5.1 K/mm3 (1.4-6.5); HEMATOCRIT 38.3 % (42.0-52.0); HEMOGLOBIN 12.5 g/dl (13.5-18.0); LYMPH # 1.3 K/mm3 (1.2-3.4); LYMPH % 17.7 % (20.0-51.0); MEAN CELL VOLUME 86 fl (80.0-100.0); MEAN CORPUSCULAR HEMOGLOBIN 28 pg (27.0-31.0); MEAN CORPUSCULAR HGB CONC 33 g/dl (33.0-37.0); MEAN PLATELET VOLUME 9.8 fl (7.4-10.4); MONO # 0.6 K/mm3 (0.1-0.6); PLATELET COUNT 179 K/mm3 (130-400); RED BLOOD COUNT 4.45 M/mm3 (4.20-5.60); REDCELL DISTRIBUTION WIDTH-CV 17.2 % (11.5-14.5)
[2021-09-21 16:43] LABS: ALBUMIN 3.9 gm/dL (3.4-4.8); BILIRUBIN,TOTAL 0.6 mg/dL (0.2-1.2); C-REACTIVE PROTEIN 0.05 mg/dL (0.00-0.50); CALCIUM 9.6 mg/dL (8.4-10.2); CREATININE, serum 1.68 mg/dL (0.72-1.25); POTASSIUM 4.6 mmol/L (3.5-4.5); TOTAL PROTEIN 7.3 gm/dL (6.2-8.1)
[2021-09-21 16:50] LABS: ERYTHROCYTE SEDIMENTATION RATE 8 mm/hr (0-30)
== END ==
LOC: COL.LAB 15:57
PROVIDERS: Nurse Practitioner
DX: T84.53XD Infection and inflammatory reaction due to internal right knee prosthesis, subsequent encounter (principal)

== ENCOUNTER 2021-10-20 09:32 | Day surgery (SDC) | payer MEDICARE ==
[~2021-10-20] VITALS: Ht 177.8 cm; Wt 129.8 kg
[~2021-10-20 09:32] MED LIST changes: +LIPITOR 80MG80 MG PO; -LIPITOR20 MG PO
[2021-10-20 10:44] VITALS: BP 183/102; PULSE 72; TEMP 98
[2021-10-20 10:45] LABS: HEMATOCRIT 38.6 % (42.0-52.0); HEMOGLOBIN 12.8 g/dl (13.5-18.0); MEAN CELL VOLUME 86 fl (80.0-100.0); MEAN CORPUSCULAR HEMOGLOBIN 29 pg (27-31); MEAN CORPUSCULAR HGB CONC 33 g/dl (33.0-37.0); MEAN PLATELET VOLUME 10.2 fl (7.4-10.4); PLATELET COUNT 158 K/mm3 (130-400); RED BLOOD COUNT 4.47 M/mm3 (4.20-5.60)
[2021-10-20 10:52] LABS: INR 1.3 (0.8-3.0); PROTHROMBIN TIME 14.2 SECONDS (9.7-12.8)
[2021-10-20 10:55] LABS: PARTIAL THROMBOPLASTIN TIME 37.7 SECONDS (26.0-37.0)
[2021-10-20 11:08] LABS: CALCIUM 9.1 mg/dL (8.4-10.2); CREATININE, serum 1.33 mg/dL (0.72-1.25); MAGNESIUM 1.8 mg/dL (1.6-2.6); POTASSIUM 4.4 mmol/L (3.5-4.5)
[2021-10-20 11:29] LABS: THYROID STIMULATING HORMONE 0.847 uIU/mL (0.350-4.940)
[2021-10-20 11:45] VITALS: BP 148/85; PULSE 75
--- NOTE | 2021-10-20 11:45 | NUR ---
report received from Marina JAY. Pt is doing fine after cardioversion. repeat EKG obtained. pt with reg rate and rhythm on monitor, occasional paced beats. telemetry employed. pt denies complaints. call light in reach.
[2021-10-20 12:00] VITALS: BP 165/87; PULSE 69
[2021-10-20 12:15] VITALS: BP 165/70; PULSE 69
[2021-10-20 12:30] VITALS: BP 163/89; PULSE 70
[2021-10-20] MEDS ORDERED: ZIAC 5/6.25MG T1 TAB PO (12:39)
[2021-10-20] MEDS ORDERED: PACERONE400 MG PO (12:39)
[2021-10-20 12:45] VITALS: BP 170/96; PULSE 70
--- NOTE | 2021-10-20 13:10 | NUR ---
PT has done well during his recovery. i reviewed dc/rx and fu instructions with pt who verbalizes understanding. iv dc'd with cath intact. dressing applied. pt has been amb to around nurses station with steady gait. feels better than he did on the way in this am. to exit via wheelchair.
== END 2021-10-20 13:20 | disposition home or self-care (01) ==
LOC: COL.CAR 09:32
PROVIDERS: Internal Medicine Cardiovascular Disease
DX: I48.0 Paroxysmal atrial fibrillation (principal); I25.10 Atherosclerotic heart disease of native coronary artery without angina pectoris; I49.5 Sick sinus syndrome; I12.9 Hypertensive chronic kidney disease with stage 1 through stage 4 chronic kidney disease, or unspecified chronic kidney disease; E78.5 Hyperlipidemia, unspecified; K21.9 Gastro-esophageal reflux disease without esophagitis; M19.90 Unspecified osteoarthritis, unspecified site; G47.33 Obstructive sleep apnea (adult) (pediatric); E11.22 Type 2 diabetes mellitus with diabetic chronic kidney disease; N18.9 Chronic kidney disease, unspecified; E78.2 Mixed hyperlipidemia; E11.42 Type 2 diabetes mellitus with diabetic polyneuropathy; Z79.82 Long term (current) use of aspirin; Z79.899 Other long term (current) drug therapy; Z86.73 Personal history of transient ischemic attack (TIA), and cerebral infarction without residual deficits; Z79.01 Long term (current) use of anticoagulants; Z79.4 Long term (current) use of insulin; Z95.0 Presence of cardiac pacemaker; Z99.89 Dependence on other enabling machines and devices
CPT/HCPCS: J2704; J7030

== ENCOUNTER → 2021-11-05 | Outpatient (CLI) | payer MEDICARE ==
[~2021-11-05] MED LIST changes: +PACERONE400 MG PO; +ZIAC 5/6.25MG T1 TAB PO
== END ==
LOC: COL.LAB 15:56
DX: E11.69 Type 2 diabetes mellitus with other specified complication (principal)

== ENCOUNTER 2022-04-18 09:30 | Day surgery (SDC) | payer MEDICARE ==
[~2022-04-18] VITALS: Ht 177.8 cm; Wt 129.5 kg
[2022-04-18] VITALS (12 sets, daily range): BP systolic 134–169; BP diastolic 81–93; PULSE 69–71; TEMP 97.9
[2022-04-18 10:32] LABS: CALCIUM 9.3 mg/dL (8.4-10.2); CREATININE, serum 1.91 mg/dL (0.72-1.25); POTASSIUM 3.9 mmol/L (3.5-4.5)
[2022-04-18 10:42] LABS: HEMATOCRIT 38.6 % (42.0-52.0); HEMOGLOBIN 12.3 g/dl (13.5-18.0); INR 1.3 (0.8-3.0); MEAN CELL VOLUME 90 fl (80.0-100.0); MEAN CORPUSCULAR HEMOGLOBIN 29 pg (27-31); MEAN CORPUSCULAR HGB CONC 32 g/dl (33.0-37.0); MEAN PLATELET VOLUME 10.5 fl (7.4-10.4); PLATELET COUNT 195 K/mm3 (130-400); PROTHROMBIN TIME 14.6 SECONDS (9.7-12.8); RED BLOOD COUNT 4.27 M/mm3 (4.20-5.60); REDCELL DISTRIBUTION WIDTH-CV 16.4 % (11.5-14.5)
[2022-04-18 10:45] LABS: PARTIAL THROMBOPLASTIN TIME 37.3 SECONDS (26.0-37.0)
[2022-04-18] MEDS ORDERED: PACERONE200 MG PO (11:09)
[2022-04-18] MEDS ORDERED: LASIX 20MG TABL20 MG PO (11:18)
[2022-04-18] MEDS ORDERED: ZEBETA 5MG5 MG PO (11:18)
--- NOTE | 2022-04-18 12:43 | NUR ---
SEE MERGE FOR ALL MEDICATION ADMINISTRATION TIMES, INTRA AND POST SEDATION ASSESSMENTS
[2022-04-18] MEDS ORDERED: DEMADEX 20MG20 M1 PO (13:57)
[2022-04-18] MEDS ORDERED: K-DUR20 MEQ PO (13:58)
--- NOTE | 2022-04-18 18:15 | NUR ---
Pt has tolerated his post procedure bedrest with no problem. Rt groin site remained soft and free of hematoma or any other evidence of bleeding throughout this time. Pt has been up and is steady on his feet, denies any lightheadedness etc. Pt was able to get dressed and is ready to go. I reviewed dc/rx and fu instructions with pt who verbalized understanding. IV dc'd with cath intact, dressing applied. Pt escorted to exit via wheelchair.
== END 2022-04-18 21:01 | disposition home or self-care (01) ==
LOC: COL.CAR 09:30
PROVIDERS: Internal Medicine Cardiovascular Disease
DX: R94.39 Abnormal result of other cardiovascular function study (principal); I25.10 Atherosclerotic heart disease of native coronary artery without angina pectoris; I10 Essential (primary) hypertension; G47.33 Obstructive sleep apnea (adult) (pediatric); Z95.0 Presence of cardiac pacemaker
CPT/HCPCS: C1760; C1894; J1644; J2250; J3010

== ENCOUNTER → 2022-04-29 | Outpatient (CLI) | payer MEDICARE ==
[~2022-04-29] MED LIST changes: +DEMADEX 20MG20 M1 PO; +K-DUR20 MEQ PO; +LASIX 20MG TABL20 MG PO; +PACERONE200 MG PO; +ZEBETA 5MG5 MG PO
[2022-04-29 12:55] LABS: HEMATOCRIT 38.9 % (42.0-52.0); HEMOGLOBIN 12.5 g/dl (13.5-18.0); MEAN CELL VOLUME 90 fl (80.0-100.0); MEAN CORPUSCULAR HEMOGLOBIN 29 pg (27-31); MEAN CORPUSCULAR HGB CONC 32 g/dl (33.0-37.0); MEAN PLATELET VOLUME 10.7 fl (7.4-10.4); PLATELET COUNT 249 K/mm3 (130-400); RED BLOOD COUNT 4.34 M/mm3 (4.20-5.60); REDCELL DISTRIBUTION WIDTH-CV 16.3 % (11.5-14.5)
[2022-04-29 13:00] LABS: MUCOUS Present (NOT PRESENT); PH 5 (5-8); SQUAMOUS EPITHELIAL None Seen /hpf (0-10); URINE APPEARANCE Clear (CLEAR/HAZY); URINE BACTERIA None Seen /hpf (NONE SEEN); URINE BILIRUBIN Negative (NEGATIVE); URINE BLOOD 1+ (NEGATIVE); URINE COLOR Yellow (YELLOW); URINE GLUCOSE 3+ (NEGATIVE); URINE KETONE Negative (NEGATIVE); URINE LEUKOCYTE ESTERASE Negative (NEGATIVE); URINE NITRATE Negative (NEGATIVE); URINE PROTEIN(semi-quant) Negative (NEGATIVE); URINE UROBILINOGEN Negative (NEGATIVE)
[2022-04-29 13:13] LABS: ALBUMIN 3.6 gm/dL (3.4-4.8); BILIRUBIN,TOTAL 0.8 mg/dL (0.2-1.2); CALCIUM 9.2 mg/dL (8.4-10.2); CHOLESTEROL RISK RATIO 3.6; CREATININE, serum 2.11 mg/dL (0.72-1.25); POTASSIUM 4.3 mmol/L (3.5-4.5); TOTAL PROTEIN 7.3 gm/dL (6.2-8.1)
[2022-04-29 13:16] LABS: ERYTHROCYTE SEDIMENTATION RATE 18 mm/hr (0-30)
[2022-04-29 13:23] LABS: COLLECTION METHOD CLEAN CATCH
[2022-04-29 13:32] LABS: THYROID STIMULATING HORMONE 1.57 uIU/mL (0.350-4.940)
== END ==
LOC: COL.LAB 12:23
PROVIDERS: Family Medicine
DX: Z12.5 Encounter for screening for malignant neoplasm of prostate (principal); E11.59 Type 2 diabetes mellitus with other circulatory complications; I25.810 Atherosclerosis of coronary artery bypass graft(s) without angina pectoris; I48.0 Paroxysmal atrial fibrillation; M00.9 Pyogenic arthritis, unspecified; I13.0 Hypertensive heart and chronic kidney disease with heart failure and stage 1 through stage 4 chronic kidney disease, or unspecified chronic kidney disease; N18.32 Chronic kidney disease, stage 3b; I50.9 Heart failure, unspecified; R60.9 Edema, unspecified

== ENCOUNTER 2022-09-07 07:30 | Inpatient (IN) | payer MEDICARE ==
[~2022-09-07] VITALS: Ht 175.3 cm; Wt 112.0 kg
[2022-09-07] VITALS (10 sets, daily range): BP systolic 125–149; BP diastolic 65–75; PULSE 69–90; TEMP 97.9–98.7
[2022-09-07 13:50] LABS: BASO % 0.2 % (0.0-2.0); EOS % 0.6 % (0.0-4.0); GRAN # 4.9 K/mm3 (1.4-6.5); GRAN % 75.2 % (42.2-75.2); LYMPH % 15.5 % (20.0-51.0); MEAN CELL VOLUME 88 fl (80.0-100.0); MEAN CORPUSCULAR HGB CONC 31 g/dl (33.0-37.0); MONO # 0.5 K/mm3 (0.1-0.6); PLATELET COUNT 261 K/mm3 (130-400); RED BLOOD COUNT 3.57 M/mm3 (4.20-5.60); REDCELL DISTRIBUTION WIDTH-CV 19.1 % (11.5-14.5)
[2022-09-07 13:54] LABS: HEMATOCRIT 31.4 % (42.0-52.0); HEMOGLOBIN 9.6 g/dl (13.5-18.0); MEAN CORPUSCULAR HEMOGLOBIN 27 pg (27-31)
[2022-09-07 14:01] LABS: BILIRUBIN,TOTAL 0.7 mg/dL (0.2-1.2); CALCIUM 8.9 mg/dL (8.4-10.2); CREATININE, serum 1.64 mg/dL (0.72-1.25); POTASSIUM 4.2 mmol/L (3.5-4.5); TOTAL PROTEIN 7.1 gm/dL (6.2-8.1)
[2022-09-07 14:18] LABS: ERYTHROCYTE SEDIMENTATION RATE 57 mm/hr (0-30)
[2022-09-07] MEDS ORDERED: NUMBONEX30 GM TP (17:44)
[2022-09-07] MEDS ORDERED: K-TAB20 PO (17:45)
[2022-09-07] MEDS ORDERED: SOAANZ20 MG PO (17:45)
[2022-09-07] MEDS ORDERED: IMDUR 30MG30 MG/TAB PO (17:46)
[2022-09-07] MEDS ORDERED: VICTOZA6 MG/ML SQ (17:48)
[2022-09-07 20:08] LABS: HEMOGLOBIN 10.2 g/dl (13.5-18.0)
[2022-09-07 20:11] LABS: HEMATOCRIT 32.3 % (42.0-52.0)
[2022-09-08] VITALS (13 sets, daily range): BP systolic 93–148; BP diastolic 47–98; PULSE 66–71; TEMP 97.9–98.7
--- NOTE | 2022-09-08 03:10 | NUR ---
SHIFT REPORT FROM SHITAL JAY. PATIENT IN BED ON ROOM ENTRY. ALERT AND ORIENTED. BLOOD COMPLETED AFTER SHIFT CHANGE AND TOLERATED WELL, POST HGB WAS 10.2. PATIENT REFUSED INITIAL BLOOD SUGAR BUT LATER AGREED TO HAVE THEM DRAWN. DENIES NEED FOR PAIN MEDICATION. REMAINS NPO SINCE MIDNIGHT.
[2022-09-08 05:03] LABS: BASO % 0.5 % (0.0-2.0); EOS # 0.1 K/mm3 (0.0-0.7); GRAN % 76.3 % (42.2-75.2); HEMOGLOBIN 10.1 g/dl (13.5-18.0); LYMPH # 0.8 K/mm3 (1.2-3.4); LYMPH % 12.2 % (20.0-51.0); MEAN CELL VOLUME 88 fl (80.0-100.0); MEAN CORPUSCULAR HEMOGLOBIN 27 pg (27-31); MEAN CORPUSCULAR HGB CONC 31 g/dl (33.0-37.0); MONO # 0.6 K/mm3 (0.1-0.6); MONO % 8.7 % (1.7-9.3); PLATELET COUNT 249 K/mm3 (130-400); RED BLOOD COUNT 3.75 M/mm3 (4.20-5.60); REDCELL DISTRIBUTION WIDTH-CV 18.8 % (11.5-14.5)
[2022-09-08 05:11] LABS: HEMATOCRIT 32.9 % (42.0-52.0)
[2022-09-08 05:18] LABS: CALCIUM 8.5 mg/dL (8.4-10.2); CREATININE, serum 1.55 mg/dL (0.72-1.25); POTASSIUM 4.3 mmol/L (3.5-4.5)
--- NOTE | 2022-09-08 07:53 | NUR ---
PATIENT OFF OF FLOOR AT 0650 FOR SURGERY.
[2022-09-08 07:58] LABS: COLLECTION METHOD CLEAN CATCH; URINE APPEARANCE Clear (CLEAR/HAZY); URINE BLOOD Negative (NEGATIVE); URINE COLOR Yellow (YELLOW); URINE GLUCOSE 2+ (NEGATIVE); URINE KETONE Negative (NEGATIVE); URINE NITRATE Negative (NEGATIVE); URINE PROTEIN(semi-quant) Negative (NEGATIVE)
[2022-09-08 08:04] LABS: SQUAMOUS EPITHELIAL None Seen /hpf (0-10); URINE BACTERIA None Seen /hpf (NONE SEEN); URINE RBC 0-2 /hpf (0-2)
--- NOTE | 2022-09-08 10:50 | NUR ---
DACIA met with the patient and his , Crystal (ph#[phone]), to discuss discharge plan. The patient was sleeping. The patient and his live in [place], [place]. Crystal states that they used to live in [place] and still have property here, which is where she has been staying, while here. She states that they still doctor in [place]. She reports that the patient is independent with ADLs and has a walker, cane, and rollator and that their bathroom is handicap accessible. The patient's PCP is Dr. Corwin Linda and he receives his medications from [facility]. The patient does not have a DPOA-HC, but Crystal states that they are working on getting one completed. Crystal states that the plan is for the patient to return back home with her upon discharge and they will be returning to their home in [place], [place]. DACIA discussed the possiblity of the patient needing IV antibiotics upon discharge. Crystal voices how she is already aware of this and they planned on doing the IV antibiotics as outpatient at [facility] in [place], [place] and if he needs outpatient PT, they will do it there as well. She states that they live near this hospital. Will await ID's recs. *Discharge plan: home with . Will likely need IV antibiotics set up. Will await ID's recs*
--- NOTE | 2022-09-08 14:15 | NUR ---
Blanca: Catholic Situation: forming operator stopped by room on rounds Background: Pt was resting with family in the room Assessment: Pt was content and has no needs. Pt appreciated the visit Recommendation: forming operator will follow up as needed
--- NOTE | 2022-09-08 19:47 | NUR ---
PT REPORTS PAIN 9/10 TO RT KNEE. MEDICATED WITH NORCO AT THIS TIME. HAS RT SINGLE LUMEN PICC. DRSG TO RT KNEE INTACT. ICE PACK IN PLACE. VOIDS PER URINAL WITHOUT PROBLEM.
--- NOTE | 2022-09-08 19:52 | NUR ---
PT HAD ORDER FOR ONE TIME DOSE OF DILAUDID, GIVEN AT THIS TIME FOR PAIN 07/16.
--- NOTE | 2022-09-08 21:20 | NUR ---
MEDICATED WITH HS MEDS INCLUDING NORCO FOR PAIN. ASSISTED PT WITH REPOSITIONING OF RT KNEE.
--- NOTE | 2022-09-08 23:40 | NUR ---
PT ASKING FOR PAIN MEDS, MEDICATED WITH MORPHINE 1MG IVP AT THIS TIME.
--- NOTE | 2022-09-09 01:28 | NUR ---
PT AWAKE, ASKING FOR PAIN MEDS. NORCO 5/325MG PO GIVEN. ICE PACK REPLACED.
[2022-09-09 04:24] VITALS: BP 115/64; PULSE 77; TEMP 98
--- NOTE | 2022-09-09 05:25 | NUR ---
PT REPORTS PAIN 8/10 TO RT KNEE. NORCO GIVEN. LABS DRAWN FROM PICC.
--- NOTE | 2022-09-09 05:35 | NUR ---
PT ASKS FOR MORPHINE WELL FOR PAIN, MEDICATED WITH 1MG IVP AT THIS TIME.
[2022-09-09 06:39] LABS: HEMATOCRIT 31.9 % (42.0-52.0); HEMOGLOBIN 9.5 g/dl (13.5-18.0)
--- NOTE | 2022-09-09 06:50 | NUR ---
awake resting in bed, bedside shift report received from MISTY Lechuga
--- NOTE | 2022-09-09 08:00 | NUR ---
JENY Gifford in to see patient, full assessment completed, see interventions for further info, asking to sit up on side of bed, assisted up to side of bed, moves well, will sit for a while and call when ready to go back to bed
--- NOTE | 2022-09-09 08:25 | NUR ---
stood and took a few steps up to head of bed and then assisted back into bed,
[2022-09-09 09:03] VITALS: BP 127/59; PULSE 73; TEMP 98
--- NOTE | 2022-09-09 09:22 | NUR ---
c/o pain, medicated with hydrocodone 5mg 1 tab, asking about morphine, informed him was not given morphine but would second pain pill in 1 hour
--- NOTE | 2022-09-09 10:28 | NUR ---
continues to c/o pain and medicated with second norco 5mg 1 tab
--- NOTE | 2022-09-09 12:15 | NUR ---
resting in bed, will order lunch soon
[2022-09-09 12:57] VITALS: BP 129/89; PULSE 74; TEMP 97.8
--- NOTE | 2022-09-09 13:29 | NUR ---
triston wrap dressing removed, incision with maikel and is CD&I without redness, aquacel dressing placed
--- NOTE | 2022-09-09 14:00 | NUR ---
physical therapy in to work with patient, c/o pain and medicated with hydrocodone 5mg 1 tab
--- NOTE | 2022-09-09 14:51 | NUR ---
Still awaiting ID's recs. DACIA contacted Yaritza with [facility] to inquire about getting the patient set up there upon discharge. Yaritza states that they do not take any orders from any outside providers. The patient would need to have a PCP there or have been seen by their ID doctor. She suggests that the patient try and use an infusion company and do home health. DACIA contacted the patient's , Crystal, to update on the above. She confirms that the patient does not have a PCP at [facility] and he has not seen ID yet. She states that the patient does have an appointment set up with their ID doctor on 09/13 at 0900 though. DACIA contacted Yaritza at [facility] to update about the appointment. Yaritza states that they would still need orders from their ID doctor, before they can administer the IV antibiotics to the patient. She states that DACIA can contact the ID office on Monday morning to inquire if they would go ahead and write orders for the patient, before his appointment on Monday, since the appointment was already made. She states that the ID office closes at 1230 on Fridays. The ID Office in [place]' phone number is [phone]. DACIA updated the patient and the PA.
--- NOTE | 2022-09-09 15:04 | NUR ---
appears to be sleeping, in bed with lights off, eyes closed, resp quiet and easy
[2022-09-09 16:14] VITALS: BP 125/66; PULSE 74; TEMP 97.9
--- NOTE | 2022-09-09 18:53 | NUR ---
bedside shift report given to MISTY Lechuga
[2022-09-09 21:00] VITALS: BP 142/69; PULSE 75; TEMP 98.1
--- NOTE | 2022-09-09 21:12 | NUR ---
PT IN BED, ASKING FOR PAIN MEDS. MEDICATED WITH HS MEDS INCLUDING NORCO AND MORPHINE 1MG IVP. RT KNEE WITH AQUACELL DRSG INTACT. VOIDING PER URINAL. WEARING SCDS. IS ALERT AND ORIENTED X4. HAS SINGLE LUMEN PICC TO MARGARITO, FLUSHES WELL.
[2022-09-09 23:51] VITALS: BP 106/59; PULSE 70; TEMP 98.1
--- NOTE | 2022-09-10 04:00 | NUR ---
PT IN BED, NOT REQUEST FOR PAIN MEDS AT THIS TIME.
[2022-09-10 04:12] VITALS: BP 100/59; PULSE 72; TEMP 98
[2022-09-10 06:53] LABS: HEMATOCRIT 30.1 % (42.0-52.0); HEMOGLOBIN 9.3 g/dl (13.5-18.0)
[2022-09-10 07:01] LABS: CALCIUM 8.6 mg/dL (8.4-10.2); CREATININE, serum 1.39 mg/dL (0.72-1.25); POTASSIUM 4.3 mmol/L (3.5-4.5)
--- NOTE | 2022-09-10 07:12 | NUR ---
Shift report received from nightclub manager RN
[2022-09-10 07:26] VITALS: BP 109/66; PULSE 70; TEMP 98
--- NOTE | 2022-09-10 09:41 | NUR ---
Pt resting in bed. Denies pain/discomfort at this time. Pt. would like another dose of pain medication prior to PT this morning or afternoon - he is unsure of his PT schedule today. Aquacell to right knee is CDI. PICC RUE flushes well w/ noted blood return. Pt. denies additional needs at this time. Call light is within his reach
[2022-09-10 11:38] VITALS: BP 109/58; PULSE 70; TEMP 98.1
--- NOTE | 2022-09-10 13:19 | NUR ---
Pt back in bed after working with PT. PT worked on ambulation in room with the pt. Pt. declines lunch today; snack offered and accepted. Pt. denies pain/discomfort at this time. Denies additional needs. Call light is in his reach
[2022-09-10 15:46] VITALS: BP 98/62; PULSE 71; TEMP 98.2
--- NOTE | 2022-09-10 19:00 | NUR ---
PT EATING DINNER TRAY, WATCHING TV. DENIES PAIN AT THIS TIME.
[2022-09-10 20:48] VITALS: BP 104/57; PULSE 80; TEMP 98.5
--- NOTE | 2022-09-10 21:41 | NUR ---
PT IN BED. REPORTS HE WALKED IN HIS ROOM WITH PT TODAY AND DID BETTER. ABLE TO BEAR WT ON RT LEG WITH MODERATE PAIN. MEDICATED WITH HS MEDS AT THIS TIME INCLUDING NORCO FOR RT KNEE PAIN. HAS HILDA DRSG TO RT KNEE, ICE PACK REPLACED. HAS MARGARITO PICC, FLUSHES WELL. VOIDING PER URINAL. WILL MONITOR FOR CHANGES.
[2022-09-11] VITALS (7 sets, daily range): BP systolic 103–131; BP diastolic 54–80; PULSE 68–74; TEMP 97.5–99.2
--- NOTE | 2022-09-11 01:00 | NUR ---
Patient care, medication administration and nursing documentation occurred during a Daylight Savings Time Change.
[2022-09-11 07:20] LABS: BASO % 0.5 % (0.0-2.0); EOS # 0.1 K/mm3 (0.0-0.7); EOS % 1.5 % (0.0-4.0); GRAN % 76.3 % (42.2-75.2); LYMPH # 0.8 K/mm3 (1.2-3.4); LYMPH % 11.8 % (20.0-51.0); MEAN CELL VOLUME 88 fl (80.0-100.0); MEAN CORPUSCULAR HGB CONC 31 g/dl (33.0-37.0); MEAN PLATELET VOLUME 10.7 fl (7.4-10.4); MONO # 0.6 K/mm3 (0.1-0.6); MONO % 9.4 % (1.7-9.3); PLATELET COUNT 224 K/mm3 (130-400); RED BLOOD COUNT 3.36 M/mm3 (4.20-5.60); REDCELL DISTRIBUTION WIDTH-CV 18.9 % (11.5-14.5)
[2022-09-11 07:26] LABS: HEMATOCRIT 29.6 % (42.0-52.0); HEMOGLOBIN 9.2 g/dl (13.5-18.0); MEAN CORPUSCULAR HEMOGLOBIN 27 pg (27-31)
[2022-09-11 07:34] LABS: CALCIUM 8.3 mg/dL (8.4-10.2); CREATININE, serum 1.35 mg/dL (0.72-1.25); POTASSIUM 4.4 mmol/L (3.5-4.5)
--- NOTE | 2022-09-11 08:00 | NUR ---
PATIENT IS ORIENTED X4 BUT DROWSY THIS AM. VSS ON TELE. PATIENT REQUESTING PAIN MEDS BEFORE AM THERAPY. GAVE PRN NORCO, ONE TAB WITH AM MEDS. NO C/O N/V. BREAKFAST TRAY ORDERED. AM BS WAS 135, NO SSI REQUIRED. RIGHT PICC LINE TO INT. HEAD TO TOE ASSESSMENT COMPLETE. PATIENT HAS STRUGGLED WITH PAIN MANAGEMENT POST OP, REPORTING HE HAS A LOW TOLERANCE FOR PAIN. PATIENT ALSO NEEDS LOTS OF ENCOURAGMENT WITH ADL'S AND ACTIVITY. PT/OT CONSULTED. NO OTHER NEEDS AT THIS TIME. CALL LIGHT IN REACH.
--- NOTE | 2022-09-11 09:30 | NUR ---
PT WORKED WITH PATIENT WHO IS NOW UP IN BEDSIDE CHAIR. PT REPORTED PATIENT DID WELL, SEE PT NOTES. PATIENT'S BIGGEST STRUGGLE IS FINDING MOTIVATION TO DO ACTIVITY. PATIENT STILL WANTS TO USE BEDSIDE URINAL EVEN WITH PT & NURSING ENCOURAGING HIM TO AMBULATE TO BATHROOM. PATIENT ALSO STILL ASKING FOR NARCOTICS FREQUENTLY. PATIENT WAS GIVEN PRN NORCO, ONE TAB BEFORE THERAPY. WILL REPEAT NORCO DOSE PER ORDERS.
[2022-09-11] MEDS ORDERED: DEMADEX 20MG20 M1 PO (13:07)
--- NOTE | 2022-09-11 19:00 | NUR ---
TECHNOL BRACE APPLIED BY JUAN CARLOS JAY. PT TOLERATED WITHOUT PROBLEM. PT REPORTS KNEE FEELS BETTER AFTER BRACE APPLIED. HAS BILATERAL TEDS ON.
--- NOTE | 2022-09-11 21:26 | NUR ---
MEDICATED WITH HS MEDS INCLUDING OXYCODONE 10MG PO FOR RT KNEE PAIN. AQUACEL DRSG INTACT. HAS MARGARITO PICC, FLUSHES WELL. VOIDING PER URINAL.
[2022-09-12 03:43] VITALS: BP 108/63; PULSE 71; TEMP 97.5
--- NOTE | 2022-09-12 08:00 | NUR ---
PATIENT IS A&O AND SITTING UP IN BED WITH BREAKFAST TRAY. VSS ON TELE. PATIENT REQUESTING PAIN MEDS BEFORE AM THERAPY. GAVE PRN ROXICODONE WITH AM MEDS. NO C/O N/V. AM BS WAS 147, NO SSI REQUIRED. RIGHT PICC LINE TO INT. HEAD TO TOE ASSESSMENT COMPLETE. PATIENT HAS EXPRESSED INTEREST IN SWB UPON DISCHARGE HE REPORTS HIS WILL NOT BE ABLE TO HELP HIM AT HOME. PATIENT STILL NEEDS LOTS OF ENCOURAGMENT WITH ADL'S AND ACTIVITY. PT/OT CONSULTED. NO OTHER NEEDS AT THIS TIME. CALL LIGHT IN REACH.
[2022-09-12 08:15] VITALS: BP 114/60; PULSE 70; TEMP 97.7
[2022-09-12 12:03] VITALS: BP 104/56; PULSE 87; TEMP 97.8
--- NOTE | 2022-09-12 13:10 | NUR ---
ID is recommending IV Dapto for six weeks. The patient expressed to staff that he is unsure if ready to go home yet and would not mind going home or SNF. PT recommends home with outpatient PT vs [facility]. SW contacted the patient's to address the above. The patient does not have a PCP established in [place], [place]. DACIA informed her how it may be difficult to find placement in [place], since the patient does not have established care there yet. She would like to talk to her . DACIA then met with the patient. The patient contacted his and placed her on speaker phone. SW addressed the above with the patient and provided him with Medicare.gov's list of SNFs in the [facility]. The patient is interested in [facility], [facility], and [facility]. Awaiting screens.
--- NOTE | 2022-09-12 15:25 | NUR ---
Luisa, [facility] Director, reports that they have declined the patient.
[2022-09-12 16:54] VITALS: BP 129/62; PULSE 69; TEMP 97.8
[2022-09-12 20:14] VITALS: BP 117/62; PULSE 70; TEMP 97.9
--- NOTE | 2022-09-12 21:21 | NUR ---
PT IN BED, REPORTS RT KNEE PAIN. HS MEDS GIVEN INCLUDING OXYCODONE 10MG PO AT THIS TIME. MARGARITO PICC FLUSHES WELL WITH GOOD BLOOD RETURN. HAS RT KNEE BRACE ON. VOIDING PER URINAL.
[2022-09-12 23:31] VITALS: BP 135/62; PULSE 69; TEMP 98.2
[2022-09-13 04:29] VITALS: BP 141/65; PULSE 71; TEMP 98.2
--- NOTE | 2022-09-13 04:39 | NUR ---
PT ASKING FOR PAIN MEDS FOR RT KNEE PAIN. NORCO GIVEN AT THIS TIME.
[2022-09-13 06:49] LABS: BASO % 0.3 % (0.0-2.0); EOS # 0.1 K/mm3 (0.0-0.7); EOS % 1.8 % (0.0-4.0); GRAN # 4.5 K/mm3 (1.4-6.5); GRAN % 75.1 % (42.2-75.2); LYMPH # 0.8 K/mm3 (1.2-3.4); LYMPH % 13.3 % (20.0-51.0); MEAN CELL VOLUME 88 fl (80.0-100.0); MEAN CORPUSCULAR HGB CONC 31 g/dl (33.0-37.0); MEAN PLATELET VOLUME 10.1 fl (7.4-10.4); MONO # 0.6 K/mm3 (0.1-0.6); MONO % 9.2 % (1.7-9.3); PLATELET COUNT 233 K/mm3 (130-400); RED BLOOD COUNT 3.26 M/mm3 (4.20-5.60); REDCELL DISTRIBUTION WIDTH-CV 18.6 % (11.5-14.5)
[2022-09-13 06:50] LABS: HEMATOCRIT 28.7 % (42.0-52.0); HEMOGLOBIN 8.8 g/dl (13.5-18.0); MEAN CORPUSCULAR HEMOGLOBIN 27 pg (27-31)
[2022-09-13 07:23] LABS: CALCIUM 8.1 mg/dL (8.4-10.2); CREATININE, serum 1.25 mg/dL (0.72-1.25); POTASSIUM 4.3 mmol/L (3.5-4.5)
[2022-09-13 07:55] VITALS: BP 122/65; PULSE 73; TEMP 96.9
[2022-09-13 12:00] VITALS: BP 111/77; PULSE 76; TEMP 97.7
--- NOTE | 2022-09-13 16:07 | NUR ---
Both [facility] and [facility] cannot take patient with Dapto. SW notified JENY Bazan who later advised they can switch patient to Vanc. SW notified both facilities and faxed updates.
[2022-09-13 16:15] VITALS: BP 130/68; PULSE 71; TEMP 98.1
[2022-09-13 21:33] VITALS: BP 124/59; PULSE 69; TEMP 99.2
[2022-09-14 00:12] VITALS: BP 125/52; PULSE 72; TEMP 99.1
[2022-09-14 04:36] VITALS: BP 124/60; PULSE 70; TEMP 99
[2022-09-14 06:59] LABS: EOS # 0.1 K/mm3 (0.0-0.7); EOS % 1.5 % (0.0-4.0); GRAN # 4.5 K/mm3 (1.4-6.5); GRAN % 81.2 % (42.2-75.2); LYMPH # 0.6 K/mm3 (1.2-3.4); MEAN CELL VOLUME 90 fl (80.0-100.0); MEAN CORPUSCULAR HGB CONC 30 g/dl (33.0-37.0); MEAN PLATELET VOLUME 10.3 fl (7.4-10.4); MONO # 0.4 K/mm3 (0.1-0.6); MONO % 7.1 % (1.7-9.3); PLATELET COUNT 251 K/mm3 (130-400); RED BLOOD COUNT 3.32 M/mm3 (4.20-5.60); REDCELL DISTRIBUTION WIDTH-CV 18.5 % (11.5-14.5)
[2022-09-14 07:04] LABS: HEMATOCRIT 29.9 % (42.0-52.0); MEAN CORPUSCULAR HEMOGLOBIN 27 pg (27-31)
[2022-09-14 07:14] LABS: CALCIUM 8.5 mg/dL (8.4-10.2); CREATININE, serum 1.2 mg/dL (0.72-1.25); POTASSIUM 4.4 mmol/L (3.5-4.5)
[2022-09-14 07:35] VITALS: BP 112/59; PULSE 70; TEMP 98.9
[2022-09-14] MEDS ORDERED: VANCO 1.51.5 GM/250 IV (10:34)
[2022-09-14] MEDS ORDERED: ASPIRIN 81M81 MG/TA2 PO (10:35)
[2022-09-14] MEDS ORDERED: ZEBETA 5MG5 MG PO (10:35)
[2022-09-14] MEDS ORDERED: ZESTRIL 20MG TA20 MG PO (10:35)
[2022-09-14] MEDS ORDERED: ELIQUIS 5MG PO ×2 (10:36)
--- NOTE | 2022-09-14 10:39 | NUR ---
Patient assessment completed,VSS, PICC line covered in triston wrap CDI.Knee brace in place on R lowerleg.Refused breakfast.Physical Therapy performed and tolerated well denies any pain afterwards.
[2022-09-14] MEDS ORDERED: TYLENOL 325MG325 MG PO (10:40)
[2022-09-14] MEDS ORDERED: DEMADEX10 MG PO (10:41)
[2022-09-14] MEDS ORDERED: VICTOZA6 MG/ML SQ (10:44)
[2022-09-14] MEDS ORDERED: FARXIGA10 PO (10:46)
[2022-09-14] MEDS ORDERED: NOVOLOG 100U100 U/M1 SQ (10:46)
[2022-09-14] MEDS ORDERED: LOVAZA1 GM PO (10:47)
[2022-09-14] MEDS ORDERED: DAZIDOX10 MG PO (10:47)
[2022-09-14] MEDS ORDERED: PACERONE200 MG PO (10:47)
[2022-09-14] MEDS ORDERED: LIPITOR 80MG80 MG PO (10:47)
[2022-09-14 11:00] VITALS: BP 110/58; PULSE 70; TEMP 96
--- NOTE | 2022-09-14 14:19 | NUR ---
Facepiece Line Supervisor attended clinical rounds and patient is ready for discharge once placement is secured. DACIA contacted Harriet at [facility] and they do not have bed availability today. DACIA contacted Alexey at [facility] who can accept but advised patient would have a copay of $194.50 per day after day 20 since he has no secondary. SW met with patient who advised [facility], but is agreeable to [facility]. When SW advised patient he would have the above copay at day 20, patient verbalized understanding and stated he hoped to not be there that long. SW also advised patient that per Alexey at [facility], there had been covid cases in the building. SW contacted patient's , Crystal who again [facility] but after speaking with patient is agreeable to discharge to [facility] SNF. SW set transport time for 1300 and faxed discharge orders. Discharge Plan: [facility] SNF
== END 2022-09-14 13:15 | DRG 467 ==
LOC: SURG 07:30
PROVIDERS: Orthopaedic Surgery; Physician Assistant; Student in an Organized Health Care Education/Training Program; ADMIT Internal Medicine
PROC: 02HV33Z Insertion of Infusion Device into Superior Vena Cava, Percutaneous Approach (ICD-10-PCS; 2022-09-07)
PROC: 0SRC0J9 Replacement of Right Knee Joint with Synthetic Substitute, Cemented, Open Approach (ICD-10-PCS; 2022-09-08)
PROC: 0SPC0JZ Removal of Synthetic Substitute from Right Knee Joint, Open Approach (ICD-10-PCS; principal; 2022-09-08 07:30)
DX: T84.53XA Infection and inflammatory reaction due to internal right knee prosthesis, initial encounter (principal); I13.0 Hypertensive heart and chronic kidney disease with heart failure and stage 1 through stage 4 chronic kidney disease, or unspecified chronic kidney disease; M00.9 Pyogenic arthritis, unspecified; Y83.8 Other surgical procedures as the cause of abnormal reaction of the patient, or of later complication, without mention of misadventure at the time of the procedure; I25.10 Atherosclerotic heart disease of native coronary artery without angina pectoris; E78.5 Hyperlipidemia, unspecified; I48.91 Unspecified atrial fibrillation; G47.33 Obstructive sleep apnea (adult) (pediatric); N18.9 Chronic kidney disease, unspecified; E11.22 Type 2 diabetes mellitus with diabetic chronic kidney disease; I48.0 Paroxysmal atrial fibrillation; J44.9 Chronic obstructive pulmonary disease, unspecified; I50.9 Heart failure, unspecified; E11.42 Type 2 diabetes mellitus with diabetic polyneuropathy; D64.9 Anemia, unspecified; I08.3 Combined rheumatic disorders of mitral, aortic and tricuspid valves; Z96.651 Presence of right artificial knee joint; B95.7 Other staphylococcus as the cause of diseases classified elsewhere; Z79.01 Long term (current) use of anticoagulants; Z79.4 Long term (current) use of insulin; I25.2 Old myocardial infarction; Z79.82 Long term (current) use of aspirin; Y92.89 Other specified places as the place of occurrence of the external cause; Z88.1 Allergy status to other antibiotic agents; Z85.828 Personal history of other malignant neoplasm of skin; Z95.0 Presence of cardiac pacemaker; Z95.1 Presence of aortocoronary bypass graft; Z86.73 Personal history of transient ischemic attack (TIA), and cerebral infarction without residual deficits; Z79.2 Long term (current) use of antibiotics; Z23 Encounter for immunization
CPT/HCPCS: A9284; C1713; C1751; C1776; C1892; J0878; J1170; J1815; J2250; J2270; J2405; J2543; J2704; J3010; J3260; J3370; J7040; J7050; L1830; P9016

== ENCOUNTER 2022-11-08 13:16 | Outpatient (CLI) | payer MEDICARE ==
[~2022-11-08] VITALS: Ht 175.3 cm; Wt 121.0 kg
[~2022-11-08 13:16] MED LIST changes: +DAZIDOX10 MG PO; +DEMADEX10 MG PO; +K-TAB20 PO; +NUMBONEX30 GM TP; +SOAANZ20 MG PO; +TYLENOL 325MG325 MG PO
[2022-11-08 13:54] VITALS: BP 115/70; PULSE 71; TEMP 98.5
[2022-11-08] MEDS ORDERED: NOVOLOG 100U100 U/M1 SQ (13:57)
[2022-11-08] MEDS ORDERED: MONODOX100 PO (13:58)
[2022-11-08] MEDS ORDERED: LEVEMIR FLEX100 U/ML SQ (13:58)
[2022-11-08 14:03] LABS: CALCIUM 8.9 mg/dL (8.4-10.2); CREATININE, serum 2.08 mg/dL (0.72-1.25); POTASSIUM 4.4 mmol/L (3.5-4.5)
--- NOTE | 2022-11-08 14:36 | NUR ---
Pt waited in room for lab results. He exits dept at this time with steady gait, refuses assistance down by wheelchair.
[2023-07-31] MEDS ORDERED: PACERONE200 MG PO (09:29)
[2023-07-31] MEDS ORDERED: DOXYCYCLINE HY100 MG PO (09:33)
[2023-07-31] MEDS ORDERED: AMBIEN 10MG10 MG PO (09:34)
== END 2022-11-08 14:37 | disposition home or self-care (01) ==
LOC: EUO 13:16
PROVIDERS: Family Medicine
DX: M00.9 Pyogenic arthritis, unspecified (principal)

== ENCOUNTER 2023-02-07 13:05 | Outpatient (CLI) | payer MEDICARE ==
[~2023-02-07 13:05] MED LIST changes: +LEVEMIR FLEX100 U/ML SQ; +MONODOX100 PO
[2023-02-07 13:25] VITALS: BP 133/82; PULSE 101; TEMP 98.6
[2023-02-07 13:47] LABS: ALBUMIN 3.6 gm/dL (3.4-4.8); BILIRUBIN,TOTAL 0.7 mg/dL (0.2-1.2); CALCIUM 9.2 mg/dL (8.4-10.2); CREATININE, serum 2.18 mg/dL (0.72-1.25); POTASSIUM 4.6 mmol/L (3.5-4.5); TOTAL PROTEIN 7.3 gm/dL (6.2-8.1)
--- NOTE | 2023-02-07 14:05 | NUR ---
Pt's hx and meds reviewed. US guided lab draw was completed. Pt exits dept with steady gait.
== END 2023-02-07 14:05 | disposition home or self-care (01) ==
LOC: EUO 13:05
PROVIDERS: Family Medicine
DX: E11.22 Type 2 diabetes mellitus with diabetic chronic kidney disease (principal); I10 Essential (primary) hypertension